=== PATIENT | female | born 1945 | race African-American/Black ===

== ENCOUNTER 2018-05-18 09:37 | Emergency (ER) | payer MEDICARE, MEDICAID ==
[~2018-05-18] VITALS: Ht 170.2 cm; Wt 102.1 kg
[2018-05-18] MEDS ORDERED: cloNIDine HCL 0.1 MG TAB PO ONE (12:45)
[2018-05-18 15:00] VITALS: BP 113/51
[2018-05-22] MEDS ORDERED: ENAL-3 PO
[2018-05-22] MEDS ORDERED: CYAN100042
[2018-05-22] MEDS ORDERED: IBUP-781 PO
[2018-05-22] MEDS ORDERED: BRIM0.159
[2018-05-22] MEDS ORDERED: FUR20T
[2018-05-22] MEDS ORDERED: DORZ2SOL18
[2018-05-22] MEDS ORDERED: CLO01T PO
[2018-05-22] MEDS ORDERED: LATA0.0015
== END 2018-05-18 16:05 | disposition home or self-care (01) ==
LOC: ER 09:37
DX: I10 Essential (primary) hypertension (principal); R51 Headache
CPT/HCPCS: 70450; 93005

== ENCOUNTER → 2018-06-21 | Outpatient (CLI) | payer MEDICARE, MEDICAID ==
[~2018-06-21] MED LIST: BRIM0.159; CLO01T PO; CYAN100042; DORZ2SOL18; ENAL-3 PO; FUR20T; IBUP-781 PO; LATA0.0015
== END | disposition home or self-care (01) ==
LOC: Rad HDHVI 09:44
PROVIDERS: ATTEND Internal Medicine Cardiovascular Disease
DX: I49.5 Sick sinus syndrome (principal); R06.1 Stridor; R06.02 Shortness of breath
CPT/HCPCS: 93306

== ENCOUNTER → 2018-07-10 | Outpatient (CLI) | payer MEDICARE, MEDICAID ==
[~2018-07-10] VITALS: Ht 172.7 cm; Wt 103.9 kg
== END | disposition home or self-care (01) ==
LOC: Rad HDHVI 13:26
PROVIDERS: ATTEND Internal Medicine Cardiovascular Disease
DX: I49.5 Sick sinus syndrome (principal); R07.89 Other chest pain; R06.02 Shortness of breath; R06.01 Orthopnea
CPT/HCPCS: 78452; 93017; 96374; A9500

== ENCOUNTER → 2019-05-02 | Outpatient (CLI) | payer MEDICARE, MEDICAID ==
[~2019-05-02] VITALS: Ht 171.4 cm; Wt 110.7 kg
[~2019-05-02] MED LIST changes: -ENAL-3 PO; +ENAL10TA2 PO
[2019-05-02 12:03] LABS: Urine Blood Negative /uL (Negative); Urine Specific Gravity 1.025 (1.001-1.035)
[2019-05-02 12:04] LABS: Basophils # (auto) 0 uL; Eosinophils # (auto) 0.1 uL; Hemoglobin 12.2 g/dL (12.2-16.2); Mean Corpuscular Hemoglobin 24.8 pg (28.0-32.0); Mean Corpuscular Volume 79.3 fL (80.0-100.0); Nucleated Red Blood Cells % 0.2 %
[2019-05-02 12:06] LABS: Basophils % (auto) 1.1 % (0.0-2.0); Eosinophils % (auto) 2.5 % (0.0-7.0); Hematocrit 38.9 % (36.0-46.0); Lymphocytes # (auto) 1.5 uL; Lymphocytes % (auto) 38.5 % (10.0-50.0); Mean Corpuscular Hgb Conc. 31.3 g/dL (32.0-36.0); Monocytes # (auto) 0.4 uL; Monocytes % (auto) 10.7 % (0.0-12.0); Neutrophils # (auto) 1.9 uL; Neutrophils % (auto) 47.2 % (37.0-80.0); Platelet Count (auto) 238 10^3/uL (140-450); Red Blood Cells 4.91 10^6/uL (4.0-5.20); Red Cell Distribution Width 16.1 % (11.8-14.3)
[2019-05-02 12:13] LABS: Albumin 3.2 g/dL (3.4-5.0); Calcium 8.8 mg/dL (8.5-10.1); Potassium 3.6 mmol/L (3.5-5.1)
[2019-05-02 12:17] LABS: BUN/Creatinine Ratio 12.5; Bilirubin, Total 0.3 mg/dL (0.2-1.0); Total Protein 6.6 g/dL (6.4-8.2)
== END | disposition home or self-care (01) ==
LOC: Rad HDHVI 08:51
PROVIDERS: ATTEND Internal Medicine Cardiovascular Disease
DX: Z00.00 Encounter for general adult medical examination without abnormal findings (principal); E03.9 Hypothyroidism, unspecified; K90.9 Intestinal malabsorption, unspecified; Z79.899 Other long term (current) drug therapy; N39.0 Urinary tract infection, site not specified; D51.9 Vitamin B12 deficiency anemia, unspecified
CPT/HCPCS: 36415; 78452; 80053; 80061; 81003; 82306; 82607; 83036; 84436; 84443; 85025; 93017; 96374; A9500

== ENCOUNTER → 2019-05-07 | Outpatient (CLI) | payer MEDICARE, MEDICAID | END | disposition home or self-care (01) | LOC: Rad HDHVI 09:06 | PROVIDERS: ATTEND Internal Medicine Cardiovascular Disease | DX: I08.8 Other rheumatic multiple valve diseases (principal) | CPT/HCPCS: 93306 ==

== ENCOUNTER → 2019-12-29 | Outpatient (CLI) | payer MEDICARE, MEDICAID ==
[~2019-12-29] MED LIST changes: +ENAL10TA13 PO; -ENAL10TA2 PO; -LATA0.0015; +LATA0.0019
== END | disposition home or self-care (01) ==
LOC: Rad HDHVI 09:45
PROVIDERS: ATTEND Internal Medicine Cardiovascular Disease
DX: I50.43 Acute on chronic combined systolic (congestive) and diastolic (congestive) heart failure (principal); R00.1 Bradycardia, unspecified
CPT/HCPCS: 93306

== ENCOUNTER → 2020-01-07 | Outpatient (CLI) | payer MEDICARE, MEDICAID ==
[2020-01-07 12:01] LABS: Basophils # (auto) 0.1 10 ^3/uL (0-0.2); Basophils % (auto) 1.1 % (0.0-2.0); Eosinophils # (auto) 0.1 10 ^3/uL (0-0.8); Eosinophils % (auto) 2.5 % (0.0-7.0); Lymphocytes # (auto) 1.8 10 ^3/uL (0.4-5.4); Monocytes # (auto) 0.5 10 ^3/uL (0-1.3); Neutrophils # (auto) 2.2 10 ^3/uL (1.6-8.6); Neutrophils % (auto) 46.7 % (37.0-80.0); Nucleated Red Blood Cells % 0.2 %
[2020-01-07 12:04] LABS: Hematocrit 39.9 % (36.0-46.0); Hemoglobin 12.6 g/dL (12.2-16.2); Lymphocytes % (auto) 38.2 % (10.0-50.0); Mean Corpuscular Hemoglobin 24.7 pg (28.0-32.0); Mean Corpuscular Hgb Conc. 31.5 g/dL (32.0-36.0); Mean Corpuscular Volume 78.3 fL (80.0-100.0); Monocytes % (auto) 11.5 % (0.0-12.0); Platelet Count (auto) 262 10^3/uL (140-450); Red Blood Cells 5.09 10^6/uL (4.0-5.20); Red Cell Distribution Width 16.4 % (11.8-14.3); White Blood Cell 4.6 10^3/uL (4.4-10.8)
[2020-01-07 12:08] LABS: Urine Blood Negative /uL (Negative); Urine Specific Gravity 1.018 (1.001-1.035)
[2020-01-07 12:15] LABS: Potassium 4.2 mmol/L (3.5-5.1)
[2020-01-07 12:23] LABS: Free T4 (Free Thyroxine) 0.81 ng/dL (0.89-1.76)
[2020-01-07 12:24] LABS: Albumin 3.3 g/dL (3.4-5.0); BUN/Creatinine Ratio 14.3; Bilirubin, Total 0.3 mg/dL (0.2-1.0); Total Protein 6.6 g/dL (6.4-8.2)
== END | disposition home or self-care (01) ==
LOC: LAB 08:48
PROVIDERS: ATTEND Internal Medicine Cardiovascular Disease
DX: D51.3 Other dietary vitamin B12 deficiency anemia (principal); I10 Essential (primary) hypertension; E11.9 Type 2 diabetes mellitus without complications; E55.9 Vitamin D deficiency, unspecified; D64.9 Anemia, unspecified; R00.2 Palpitations; R53.1 Weakness; R30.0 Dysuria
CPT/HCPCS: 36415; 80053; 80061; 81003; 82306; 82607; 83036; 84439; 84443; 85025; 87086

== ENCOUNTER → 2020-06-25 | Day surgery (SDC) | payer MEDICARE, MEDICAID ==
[2020-06-22 15:12] LABS: Basophils # (auto) 0.1 10 ^3/uL (0-0.2); Eosinophils # (auto) 0.1 10 ^3/uL (0-0.8); Lymphocytes # (auto) 2.1 10 ^3/uL (0.4-5.4); Monocytes # (auto) 0.5 10 ^3/uL (0-1.3)
[2020-06-22 15:16] LABS: Basophils % (auto) 1.5 % (0.0-2.0); Eosinophils % (auto) 2.1 % (0.0-7.0); Hematocrit 39.1 % (36.0-46.0); Hemoglobin 12.8 g/dL (12.2-16.2); Lymphocytes % (auto) 43.6 % (10.0-50.0); Mean Corpuscular Hemoglobin 25.4 pg (28.0-32.0); Mean Corpuscular Hgb Conc. 32.7 g/dL (32.0-36.0); Mean Corpuscular Volume 77.6 fL (80.0-100.0); Monocytes % (auto) 9.8 % (0.0-12.0); Nucleated Red Blood Cells % 0.3 %; Platelet Count (auto) 225 10^3/uL (140-450); Red Blood Cells 5.03 10^6/uL (4.0-5.20); White Blood Cell 4.7 10^3/uL (4.4-10.8)
[2020-06-22 15:22] LABS: Urine Bacteria MOD /hpf (None Seen); Urine Blood Negative /uL (Negative); Urine Specific Gravity 1.018 (1.001-1.035); Urine WBC 5 /hpf (0 - 5)
[2020-06-22 16:06] LABS: Albumin 3.5 g/dL (3.4-5.0); Calcium 8.8 mg/dL (8.5-10.1); Potassium 4.1 mmol/L (3.5-5.1)
[2020-06-22 16:12] LABS: BUN/Creatinine Ratio 14.8; Bilirubin, Total 0.2 mg/dL (0.2-1.0)
[2020-06-22 16:24] LABS: INR 1.04 (0.9-1.15); Partial Thromboplastin Time 26.2 sec (23.0-31.2)
[~2020-06-25] VITALS: Ht 170.2 cm; Wt 110.2 kg
[~2020-06-25] MED LIST changes: +ACET-1304 PO; +ASCO100076 PO; -BRIM0.159; +CHOL500040 PO; -CLO01T PO; -CYAN100042; +CYAN1TAB14 PO; -DORZ2SOL18; +DORZ2SOL18 EACHEYE; +FERR-20 PO; -FUR20T; +FUR20T PO; +GABA100C9 PO; +HYDROmorphone HCL 2 MG/ML VL IV PRN; -IBUP-781 PO; +LABETALOL HCL 5 MG/ML 4ML SYRINGE IV PRN; -LATA0.0019; +LATA0.0019 EACHEYE; +LEVO50TA7 PO; +NEOMYCIN-BACITRACIN-POLYM 15GM TOP OINT TOP ONE; +NIFE1TAB31 PO; +ONDANSETRON HCL 4 MG/2 ML VIAL IV PRN; +PROPOFOL 10 MG/ML 20 ML IV ONE; +ROPIVACAINE 0.5% (5MG/ML) 20ML AMPULE IJ ONE; +VITA400T4 PO; +ZINC50TA7 PO; +ceFAZolin 1GM/50ML 50 ML IV ONE
[2020-06-25] MEDS: hydrALAZINE HCL 20 MG/ML VL IV PRN ×5 (08:35→09:50)
[2020-06-25 10:20] VITALS: BP 156/80
== END | disposition home or self-care (01) ==
LOC: SUR 06:03
PROVIDERS: ATTEND Podiatrist Foot & Ankle Surgery
DX: M20.41 Other hammer toe(s) (acquired), right foot (principal); M20.42 Other hammer toe(s) (acquired), left foot; I10 Essential (primary) hypertension; E07.9 Disorder of thyroid, unspecified; R00.1 Bradycardia, unspecified; E66.9 Obesity, unspecified; Z20.822 Contact with and (suspected) exposure to COVID-19; Z98.890 Other specified postprocedural states; Z79.899 Other long term (current) drug therapy; Z95.0 Presence of cardiac pacemaker; Z85.3 Personal history of malignant neoplasm of breast; Z68.38 Body mass index [BMI] 38.0-38.9, adult
CPT/HCPCS: 28285; 36415; 80053; 81001; 85025; 85610; 85730; 88305; 88311; J0360; J0690; J1170; J2405; J2704; J2795; J3490; U0003

== ENCOUNTER 2020-07-12 13:18 | Emergency (ER) | payer MEDICARE, MEDICAID ==
[~2020-07-12] VITALS: Ht 172.7 cm; Wt 108.9 kg
[~2020-07-12 13:18] MED LIST changes: -HYDROmorphone HCL 2 MG/ML VL IV PRN; -LABETALOL HCL 5 MG/ML 4ML SYRINGE IV PRN; -NEOMYCIN-BACITRACIN-POLYM 15GM TOP OINT TOP ONE; -ONDANSETRON HCL 4 MG/2 ML VIAL IV PRN; -PROPOFOL 10 MG/ML 20 ML IV ONE; -ROPIVACAINE 0.5% (5MG/ML) 20ML AMPULE IJ ONE; -ceFAZolin 1GM/50ML 50 ML IV ONE
[2020-07-12 13:49] VITALS: BP 139/73
== END 2020-07-12 14:41 | disposition home or self-care (01) ==
LOC: ER 13:18
DX: R07.81 Pleurodynia (principal); I10 Essential (primary) hypertension; Z90.710 Acquired absence of both cervix and uterus; W18.39XA Other fall on same level, initial encounter; Y93.89 Activity, other specified; Y92.89 Other specified places as the place of occurrence of the external cause; Y99.8 Other external cause status
CPT/HCPCS: 71101

== ENCOUNTER 2020-07-29 08:20 | Emergency (ER) | payer MEDICARE, MEDICAID ==
[~2020-07-29] VITALS: Ht 170.2 cm; Wt 110.2 kg
[2020-07-29 09:45] VITALS: BP 129/62
== END 2020-07-29 10:04 | disposition home or self-care (01) ==
LOC: ER 08:20
DX: S46.911A Strain of unspecified muscle, fascia and tendon at shoulder and upper arm level, right arm, initial encounter (principal); M19.011 Primary osteoarthritis, right shoulder; I10 Essential (primary) hypertension; Z90.710 Acquired absence of both cervix and uterus; W18.09XA Striking against other object with subsequent fall, initial encounter; Y93.89 Activity, other specified; Y92.89 Other specified places as the place of occurrence of the external cause; Y99.8 Other external cause status
CPT/HCPCS: 73030; 93005

== ENCOUNTER 2021-11-01 10:13 | Emergency (ER) | payer MEDICARE, MEDICAID ==
[~2021-11-01] VITALS: Ht 170.2 cm; Wt 100.4 kg
[2021-11-01 11:15] VITALS: BP 122/52
== END 2021-11-01 13:58 | disposition home or self-care (01) ==
LOC: ER 10:13
DX: S46.911A Strain of unspecified muscle, fascia and tendon at shoulder and upper arm level, right arm, initial encounter (principal); S80.02XA Contusion of left knee, initial encounter; S50.01XA Contusion of right elbow, initial encounter; I10 Essential (primary) hypertension; W18.09XA Striking against other object with subsequent fall, initial encounter; Y93.01 Activity, walking, marching and hiking; Y92.098 Other place in other non-institutional residence as the place of occurrence of the external cause; Y99.8 Other external cause status
CPT/HCPCS: 73030; 73080; 73562

== ENCOUNTER → 2021-11-09 | Outpatient (CLI) | payer MEDICARE, MEDICAID | END | disposition home or self-care (01) | LOC: Rad HDHVI 09:44 | PROVIDERS: ATTEND Internal Medicine Cardiovascular Disease | DX: I08.8 Other rheumatic multiple valve diseases (principal); I50.43 Acute on chronic combined systolic (congestive) and diastolic (congestive) heart failure; R06.02 Shortness of breath; Z95.0 Presence of cardiac pacemaker | CPT/HCPCS: 93306 ==

== ENCOUNTER → 2021-11-16 | Outpatient (CLI) | payer MEDICARE, MEDICAID | END | disposition home or self-care (01) | LOC: Rad HDHVI 09:34 | PROVIDERS: ATTEND Internal Medicine Cardiovascular Disease | DX: I51.7 Cardiomegaly (principal); I10 Essential (primary) hypertension | CPT/HCPCS: 93880 ==

== ENCOUNTER → 2021-11-21 | Outpatient (CLI) | payer MEDICARE, MEDICAID ==
[~2021-11-21] VITALS: Ht 171.4 cm; Wt 101.2 kg
== END | disposition home or self-care (01) ==
LOC: Rad HDHVI 09:21
PROVIDERS: ATTEND Internal Medicine Cardiovascular Disease
DX: I10 Essential (primary) hypertension (principal); Z82.49 Family history of ischemic heart disease and other diseases of the circulatory system; Z95.0 Presence of cardiac pacemaker; Z79.899 Other long term (current) drug therapy
CPT/HCPCS: 78452; 93017; 96374; A9500

== ENCOUNTER 2022-01-16 11:38 | Emergency (ER) | payer MEDICARE, MEDICAID ==
[~2022-01-16] VITALS: Ht 170.2 cm; Wt 106.0 kg
[2022-01-16 15:22] VITALS: BP 100/65
[2022-01-16] MEDS ORDERED: ACETAMINOPHEN 500 MG TAB PO ONE (15:30)
== END 2022-01-16 19:12 | disposition home or self-care (01) ==
LOC: ER 11:38
DX: S93.601A Unspecified sprain of right foot, initial encounter (principal); S83.91XA Sprain of unspecified site of right knee, initial encounter; Z79.899 Other long term (current) drug therapy; Z90.710 Acquired absence of both cervix and uterus; W01.0XXA Fall on same level from slipping, tripping and stumbling without subsequent striking against object, initial encounter; Y93.89 Activity, other specified; Y92.89 Other specified places as the place of occurrence of the external cause; Y99.8 Other external cause status
CPT/HCPCS: 72100; 73130; 73501; 73562; 73630

== ENCOUNTER → 2022-05-19 | Outpatient (CLI) | payer MEDICARE, MEDICAID | END | disposition home or self-care (01) | LOC: Rad HDHVI 10:00 | PROVIDERS: ATTEND Internal Medicine Cardiovascular Disease | DX: M51.36 Other intervertebral disc degeneration, lumbar region (principal); M48.061 Spinal stenosis, lumbar region without neurogenic claudication; M89.38 Hypertrophy of bone, other site; M54.50 Low back pain, unspecified | CPT/HCPCS: 72131 ==

== ENCOUNTER → 2022-07-14 | Outpatient (CLI) | payer MEDICARE, MEDICAID | END | disposition home or self-care (01) | LOC: Rad HDHVI 13:31 | PROVIDERS: ATTEND Internal Medicine Cardiovascular Disease | DX: R05.9 Cough, unspecified (principal); M51.34 Other intervertebral disc degeneration, thoracic region; M48.04 Spinal stenosis, thoracic region | CPT/HCPCS: 71046 ==

== ENCOUNTER 2022-12-04 10:17 | Emergency (ER) | payer MEDICARE, MEDICAID ==
[~2022-12-04] VITALS: Ht 170.2 cm; Wt 98.4 kg
[~2022-12-04 10:17] MED LIST changes: -ENAL10TA13 PO; +ENAL1TAB47 PO; -FERR-20 PO; +FERR325T24 PO; +GABA-1308 PO; -GABA100C9 PO; -LATA0.0019 EACHEYE; +LATA0.008 EACHEYE
[2022-12-04 11:17] LABS: Basophils # (auto) 0.1 10 ^3/uL (0-0.2); Basophils % (auto) 0.7 % (0.0-2.0); Eosinophils # (auto) 0.1 10 ^3/uL (0-0.8); Hemoglobin 11.6 g/dL (12.2-16.2)
[2022-12-04 11:20] LABS: Eosinophils % (auto) 0.5 % (0.0-7.0); Hematocrit 35.8 % (36.0-46.0); Lymphocytes # (auto) 1.4 10 ^3/uL (0.4-5.4); Mean Corpuscular Hemoglobin 25.4 pg (28.0-32.0); Mean Corpuscular Hgb Conc. 32.4 g/dL (32.0-36.0); Mean Corpuscular Volume 78.4 fL (80.0-100.0); Monocytes # (auto) 0.9 10 ^3/uL (0-1.3); Monocytes % (auto) 9.2 % (0.0-12.0); Neutrophils # (auto) 7.1 10 ^3/uL (1.6-8.6); Neutrophils % (auto) 74.6 % (37.0-80.0); Red Blood Cells 4.56 10^6/uL (4.0-5.20); White Blood Cell 9.6 10^3/uL (4.4-10.8)
[2022-12-04 11:25] LABS: Alanine Aminotransferase 15 U/L (7-40); Albumin 4.1 g/dL (3.2-4.8); Alkaline Phosphatase 89 U/L (46-116); Aspartate Aminotransferase 11 U/L (13-40); BUN/Creatinine Ratio 15.2 (10.0-20.0); Blood Urea Nitrogen 15 mg/dL (9-23); Calcium 9.1 mg/dL (8.5-10.1); Chloride 107 mmol/L (98-107); Glucose 133 mg/dL (74-106); Magnesium 1.6 mg/dL (1.6-2.6); Potassium 4.2 mmol/L (3.5-5.1); Sodium 141 mmol/L (136-145)
[2022-12-04 11:26] LABS: Bilirubin, Total 0.5 mg/dL (0.2-1.0); Total Protein 6.4 g/dL (5.7-8.2)
[2022-12-04 12:09] LABS: Rapid Influenza A Negative (Negative); Rapid Influenza B Negative (Negative)
[2022-12-04 12:10] LABS: COVID19 ANTIGEN SOFIA FIA NEGATIVE (NEGATIVE)
[2022-12-04 13:03] LABS: Urine Bacteria NONE SEEN /hpf (None Seen); Urine Blood Negative /uL (Negative); Urine Clarity Clear (Clear); Urine Color Colorless (Yellow); Urine Hyaline Cast FEW /lpf (0 - 2); Urine Protein, UAD Negative (Negative); Urine Urobilinogen Normal (Negative); Urine WBC 1 /hpf (0 - 5)
[2022-12-04] MEDS ORDERED: IOHEXOL 350 MG/ML 100ML IJ ONE (14:16)
[2022-12-04] MEDS ORDERED: METH4PAK PO (16:11)
[2022-12-04] MEDS ORDERED: AZIT1POW PO ×3 (16:11→19:36)
[2022-12-04 16:21] VITALS: BP 139/67; PULSE 100; RESP 15; TEMP 99; O2SAT 98
== END 2022-12-04 16:23 | disposition home or self-care (01) ==
LOC: ER 10:17
DX: J20.9 Acute bronchitis, unspecified (principal); R79.1 Abnormal coagulation profile; I10 Essential (primary) hypertension; Z90.710 Acquired absence of both cervix and uterus; Z20.822 Contact with and (suspected) exposure to COVID-19
CPT/HCPCS: 36415; 71046; 71275; 80053; 81001; 83605; 83735; 83880; 84484; 85025; 85379; 87040; 87426; 87804; 93005; 99285; Q9967

== ENCOUNTER 2022-12-29 10:06 | Emergency (ER) | payer MEDICARE, MEDICAID ==
[~2022-12-29] VITALS: Ht 170.2 cm; Wt 10.0 kg
[~2022-12-29 10:06] MED LIST changes: +AZIT1POW PO; +METH4PAK PO
[2022-12-29 11:22] VITALS: BP 112/70; PULSE 69; RESP 18; TEMP 98.6; O2SAT 97
[2022-12-29 11:58] LABS: Basophils # (auto) 0.1 10 ^3/uL (0-0.2); Eosinophils # (auto) 0.1 10 ^3/uL (0-0.8); Hemoglobin 11.5 g/dL (12.2-16.2); Lymphocytes # (auto) 1.7 10 ^3/uL (0.4-5.4); Neutrophils # (auto) 2.3 10 ^3/uL (1.6-8.6); Nucleated Red Blood Cells % 0.1 %; Red Cell Distribution Width 17.6 % (11.8-14.3); White Blood Cell 4.6 10^3/uL (4.4-10.8)
[2022-12-29 11:59] LABS: Basophils % (auto) 1.3 % (0.0-2.0); Hematocrit 36.2 % (36.0-46.0); Lymphocytes % (auto) 37.9 % (10.0-50.0); Mean Corpuscular Hgb Conc. 31.7 g/dL (32.0-36.0); Mean Corpuscular Volume 79.1 fL (80.0-100.0); Monocytes # (auto) 0.4 10 ^3/uL (0-1.3); Monocytes % (auto) 9.4 % (0.0-12.0); Neutrophils % (auto) 49.4 % (37.0-80.0); Red Blood Cells 4.58 10^6/uL (4.0-5.20)
[2022-12-29 12:13] LABS: INR 1.09 (0.9-1.15); Prothrombin Time 11.4 sec (9.3-11.8)
[2022-12-29 12:17] LABS: Alanine Aminotransferase 15 U/L (7-40); Albumin 4.2 g/dL (3.2-4.8); Alkaline Phosphatase 94 U/L (46-116); Anion Gap 7 (5-15); Aspartate Aminotransferase 12 U/L (13-40); BUN/Creatinine Ratio 11.3 (10.0-20.0); Bilirubin, Total 0.4 mg/dL (0.2-1.0); Blood Urea Nitrogen 13 mg/dL (9-23); Calcium 9.2 mg/dL (8.7-10.4); Carbon Dioxide 29 mmol/L (20-30); Chloride 107 mmol/L (98-107); Glucose 96 mg/dL (74-106); Potassium 4.1 mmol/L (3.5-5.1); Sodium 143 mmol/L (136-145); Total Protein 6.6 g/dL (5.7-8.2); Uric Acid 6.2 mg/dL (3.1-7.8)
[2022-12-29 13:25] LABS: Urine Bacteria NONE SEEN /hpf (None Seen); Urine Blood Negative /uL (Negative); Urine Clarity Clear (Clear); Urine Color Yellow (Yellow); Urine Hyaline Cast MOD /lpf (0 - 2); Urine Protein, UAD Negative (Negative); Urine Specific Gravity 1.016 (1.001-1.035); Urine Urobilinogen Normal (Negative); Urine WBC 2 /hpf (0 - 5)
== END 2022-12-29 13:59 | disposition home or self-care (01) ==
LOC: ER 10:06
DX: R60.9 Edema, unspecified (principal); I10 Essential (primary) hypertension; Z79.899 Other long term (current) drug therapy; Z90.710 Acquired absence of both cervix and uterus; Z98.890 Other specified postprocedural states
CPT/HCPCS: 36415; 80053; 81001; 83880; 84550; 85025; 85610; 93971

== ENCOUNTER → 2023-01-30 | Outpatient (CLI) | payer MEDICARE, MEDICAID | END | disposition home or self-care (01) | LOC: Rad HDHVI 08:57 | PROVIDERS: ATTEND Internal Medicine Cardiovascular Disease | DX: I08.1 Rheumatic disorders of both mitral and tricuspid valves (principal); I10 Essential (primary) hypertension | CPT/HCPCS: 93306 ==

== ENCOUNTER → 2023-02-02 | Outpatient (CLI) | payer MEDICARE, MEDICAID ==
[~2023-02-02] VITALS: Ht 171.4 cm; Wt 96.6 kg
[~2023-02-02] MED LIST changes: +ADENOSINE 81 MG in GIVE UN-DILUTED 0 ML IV ONE; +ADENOSINE 90 MG/30 ML INJ IV ONE
== END | disposition home or self-care (01) ==
LOC: Rad HDHVI 09:57
PROVIDERS: ATTEND Internal Medicine Cardiovascular Disease
DX: R06.02 Shortness of breath (principal); I10 Essential (primary) hypertension; I49.5 Sick sinus syndrome; R42 Dizziness and giddiness; E78.00 Pure hypercholesterolemia, unspecified; Z95.0 Presence of cardiac pacemaker
CPT/HCPCS: 78452; 93005; 96374; 96375; A9500; J0153

== ENCOUNTER 2023-03-01 06:02 | Inpatient (IN) | payer MEDICARE, MEDICAID ==
[2023-02-26 10:51] LABS: Eosinophils # (auto) 0.1 10 ^3/uL (0-0.8); Hemoglobin 10.6 g/dL (12.2-16.2); Mean Corpuscular Hgb Conc. 31.7 g/dL (32.0-36.0); Neutrophils # (auto) 2.5 10 ^3/uL (1.6-8.6); Red Blood Cells 4.18 10^6/uL (4.0-5.20)
[2023-02-26 10:55] LABS: Basophils # (auto) 0.1 10 ^3/uL (0-0.2); Basophils % (auto) 1.1 % (0.0-2.0); Eosinophils % (auto) 2.1 % (0.0-7.0); Hematocrit 33.6 % (36.0-46.0); Lymphocytes # (auto) 1.6 10 ^3/uL (0.4-5.4); Lymphocytes % (auto) 33.5 % (10.0-50.0); Mean Corpuscular Hemoglobin 25.5 pg (28.0-32.0); Mean Corpuscular Volume 80.4 fL (80.0-100.0); Monocytes # (auto) 0.5 10 ^3/uL (0-1.3); Monocytes % (auto) 11.3 % (0.0-12.0); Nucleated Red Blood Cells % 0.1 %; Red Cell Distribution Width 16.1 % (11.8-14.3); White Blood Cell 4.8 10^3/uL (4.4-10.8)
[2023-02-26 11:10] LABS: Urine Bacteria NONE SEEN /hpf (None Seen); Urine Blood Negative /uL (Negative); Urine Clarity Clear (Clear); Urine Color Yellow (Yellow); Urine Hyaline Cast MOD /lpf (0 - 2); Urine Mucus FEW (None Seen); Urine Protein, UAD TRACE (Negative); Urine Specific Gravity 1.026 (1.001-1.035); Urine WBC 2 /hpf (0 - 5)
[2023-02-26 11:14] LABS: INR 1.11 (0.9-1.15); Partial Thromboplastin Time 26.3 SEC (24.5-34.5); Prothrombin Time 11.6 sec (9.3-11.8)
[2023-02-26 11:25] LABS: Alanine Aminotransferase 14 U/L (7-40); Alkaline Phosphatase 76 U/L (46-116); Anion Gap 6 (5-15); Blood Urea Nitrogen 18 mg/dL (9-23); Calcium 9.1 mg/dL (8.5-10.1); Carbon Dioxide 28 mmol/L (20-30); Chloride 109 mmol/L (98-107); Glucose 76 mg/dL (74-106); Potassium 4.5 mmol/L (3.5-5.1); Sodium 143 mmol/L (136-145)
[2023-02-26 11:27] LABS: Albumin 3.8 g/dL (3.2-4.8); Aspartate Aminotransferase 15 U/L (13-40); Bilirubin, Total 0.3 mg/dL (0.2-1.0); Total Protein 5.9 g/dL (5.7-8.2)
[~2023-03-01] VITALS: Ht 170.2 cm; Wt 101.9 kg
[~2023-03-01 06:02] MED LIST changes: -ADENOSINE 81 MG in GIVE UN-DILUTED 0 ML IV ONE; -ADENOSINE 90 MG/30 ML INJ IV ONE; -ASCO100076 PO; +ASCO500C49 PO; -AZIT1POW PO; +BACL20TA PO; -FERR325T24 PO; +FERR65TA PO; -GABA-1308 PO; +LORA-622 PO; +MAGN400T40 OR; -METH4PAK PO; +NIFE1TAB30 PO; -NIFE1TAB31 PO
[2023-03-01] MEDS ORDERED: ceFAZolin 2 GM/D5W100ml 100 ML IV ONE (06:18)
[2023-03-01] MEDS ORDERED: TRANEXAMIC ACID 20 ML ONE (06:21)
[2023-03-01] MEDS ORDERED: LIDOCAINE W/ EPINEPHRINE 1% 20ML VIAL ONE (06:21)
[2023-03-01] MEDS ORDERED: ACETAMINOPHEN IV 100 ML IV ONE (06:37)
[2023-03-01] MEDS ORDERED: ACETAMINOPHEN IV 1000 MG/100ML (10MG/ML) IV ONE (06:45)
[2023-03-01] MEDS ORDERED: oxyCODONE ER 20 MG TAB PO ONE (06:45)
[2023-03-01] MEDS ORDERED: GABAPENTIN 300 MG CAP PO ONE (06:45)
[2023-03-01] MEDS ORDERED: MAGNESIUM SULFATE 1GM/100ML 200 ML IV ONE (06:48)
[2023-03-01] MEDS ORDERED: LIDOCAINE 4MG/ML IV SOLN 500 ML IV ONE (06:48)
[2023-03-01] MEDS ORDERED: LIDOCAINE 2% JELLY 11ml (GLYDO) ONE (06:48)
[2023-03-01] MEDS ORDERED: PROPOFOL 10 MG/ML 20 ML IV ONE ×4 (07:00→10:43)
[2023-03-01] MEDS ORDERED: GLYCOPYRROLATE 0.2 MG/ML 1ML VIAL ONE (07:00)
[2023-03-01] MEDS ORDERED: ROCURONIUM 10MG/ML 10ML VIAL IV ONE (07:00)
[2023-03-01] MEDS ORDERED: ONDANSETRON HCL 4 MG/2 ML VIAL ONE (07:01)
[2023-03-01] MEDS ORDERED: LIDOCAINE 2% (LOCAL ANESTH.) PF 5ml SDV ONE (07:01)
[2023-03-01] MEDS ORDERED: DexAMETHasone SOD PHOS 10MG/1ML VIAL INJ ONE (07:01)
[2023-03-01] MEDS ORDERED: GABAPENTIN 300 MG CAP ONE (07:09)
[2023-03-01] MEDS ORDERED: MINERAL OIL TOPICAL 10ml TOP ONE (08:56)
[2023-03-01] MEDS ORDERED: ESMOLOL HCL 10 ML IV ONE (09:03)
[2023-03-01] MEDS ORDERED: fentaNYL CITRATE 100 MCG/2 ML VL ONE (10:30)
[2023-03-01] MEDS ORDERED: ONDANSETRON HCL 4 MG/2 ML VIAL IV PRN ×2 (11:00→12:15)
[2023-03-01] MEDS ORDERED: MORPHINE SULFATE INJ 2 MG/ml SYRG IV PRN (11:00)
[2023-03-01] MEDS ORDERED: NITROGLYCERIN 0.4 MG SL TAB SL PRN (11:00)
[2023-03-01] MEDS ORDERED: ACETAMINOPHEN 325 MG TAB PO PRN (11:00)
[2023-03-01] MEDS ORDERED: ceFAZolin 1GM/50ML 50 ML IV SCH (11:00)
[2023-03-01 12:00] VITALS: O2SAT 100
[2023-03-01] MEDS ORDERED: ePHEDrine SULFATE 50 MG/ML AMP IV PRN (12:15)
[2023-03-01] MEDS ORDERED: HYDROmorphone HCL 2 MG/ML VL/or syr IV PRN (12:15)
[2023-03-01] MEDS ORDERED: oxyCODONE HCL 5MG TAB PO PRN (12:15)
[2023-03-01] MEDS ORDERED: FLUMAZENIL 0.1 MG/ML INJ 10ML MDV IV PRN (12:15)
[2023-03-01] MEDS ORDERED: fentaNYL CITRATE 100 MCG/2 ML VL IV PRN (12:15)
[2023-03-01] MEDS ORDERED: LABETALOL HCL 5 MG/ML 4ML SYRINGE IV PRN (12:15)
[2023-03-01] MEDS ORDERED: NALOXONE HCL 0.4 MG/ML VIAL IV PRN (12:15)
[2023-03-01] MEDS: hydrALAZINE HCL 20 MG/ML VL IV PRN ×2 (13:24→13:36)
[2023-03-01] MEDS: CYCLOBENZAPRINE HCL 10 MG TAB PO SCH ×2 (14:00→21:50)
[2023-03-01] MEDS ORDERED: hydrALAZINE HCL 20 MG/ML VL IV PRN (14:30)
[2023-03-01 15:23] VITALS: RESP 18; O2SAT 97
[2023-03-01 15:32] VITALS: BP 124/68; PULSE 67; RESP 17; TEMP 98.4; O2SAT 98
[2023-03-01] MEDS: ceFAZolin 1GM/50ML 50 ML IV SCH (16:29)
[2023-03-01 16:45] VITALS: BP 119/62; PULSE 62; RESP 17; TEMP 97.3; O2SAT 96
[2023-03-01 20:00] VITALS: PULSE 64; PULSE 67; RESP 16; O2SAT 97
[2023-03-01] MEDS: D5W/SOD CHLO 0.9% 1,000 ML IV SCH (21:47)
[2023-03-01] MEDS: DOCUSATE SOD 100 MG CAP PO SCH (21:50)
[2023-03-01 22:00] VITALS: BP 111/59; PULSE 64; RESP 16; TEMP 97.7; O2SAT 97
[2023-03-02] VITALS (7 sets, daily range): BP systolic 106–114; BP diastolic 54–59; PULSE 70–86; RESP 14–19; TEMP 97.7–100; O2SAT 94–97
[2023-03-02] MEDS: ceFAZolin 1GM/50ML 50 ML IV SCH (00:54)
[2023-03-02] MEDS: CYCLOBENZAPRINE HCL 10 MG TAB PO SCH ×3 (05:15→21:23)
[2023-03-02] MEDS: LEVOTHYROXINE SODIUM 50 MCG TAB PO SCH (06:07)
[2023-03-02 06:17] LABS: Basophils # (auto) 0 10 ^3/uL (0-0.2); Basophils % (auto) 0.3 % (0.0-2.0); Eosinophils # (auto) 0 10 ^3/uL (0-0.8); Hemoglobin 10.1 g/dL (12.2-16.2); Mean Corpuscular Hgb Conc. 31.6 g/dL (32.0-36.0); Mean Corpuscular Volume 79.9 fL (80.0-100.0); Monocytes # (auto) 1.1 10 ^3/uL (0-1.3)
[2023-03-02 06:21] LABS: Eosinophils % (auto) 0.1 % (0.0-7.0); Lymphocytes # (auto) 1.9 10 ^3/uL (0.4-5.4); Lymphocytes % (auto) 17.5 % (10.0-50.0); Mean Corpuscular Hemoglobin 25.2 pg (28.0-32.0); Monocytes % (auto) 10.3 % (0.0-12.0); Neutrophils # (auto) 7.6 10 ^3/uL (1.6-8.6); Neutrophils % (auto) 71.8 % (37.0-80.0); Red Blood Cells 4.01 10^6/uL (4.0-5.20); White Blood Cell 10.6 10^3/uL (4.4-10.8)
[2023-03-02 06:51] LABS: Anion Gap 6 (5-15); Carbon Dioxide 27 mmol/L (20-30); Chloride 108 mmol/L (98-107); Sodium 141 mmol/L (136-145)
[2023-03-02 06:56] LABS: Glucose 110 mg/dL (74-106)
[2023-03-02 06:57] LABS: BUN/Creatinine Ratio 12.1 (10.0-20.0); Blood Urea Nitrogen 13 mg/dL (9-23)
[2023-03-02] MEDS: D5W/SOD CHLO 0.9% 1,000 ML IV SCH ×2 (07:00→16:51)
[2023-03-02] MEDS: DOCUSATE SOD 100 MG CAP PO SCH ×2 (10:22→21:23)
[2023-03-02] MEDS: LISINOPRIL 10 MG TAB PO SCH (10:22)
[2023-03-02] MEDS: MORPHINE SULFATE INJ 2 MG/ml SYRG IV PRN (16:59)
[2023-03-03] VITALS (7 sets, daily range): BP systolic 104–135; BP diastolic 49–76; PULSE 62–98; RESP 17–20; TEMP 97.9–100.1; O2SAT 95–99
[2023-03-03] MEDS: D5W/SOD CHLO 0.9% 1,000 ML IV SCH ×3 (03:00→23:35)
[2023-03-03] MEDS: LEVOTHYROXINE SODIUM 50 MCG TAB PO SCH (06:02)
[2023-03-03] MEDS: CYCLOBENZAPRINE HCL 10 MG TAB PO SCH ×3 (06:04→21:25)
[2023-03-03] MEDS: LISINOPRIL 10 MG TAB PO SCH (09:13)
[2023-03-03] MEDS: DOCUSATE SOD 100 MG CAP PO SCH ×2 (09:13→21:25)
[2023-03-04] VITALS (7 sets, daily range): BP systolic 106–131; BP diastolic 46–63; PULSE 83–100; RESP 16–19; TEMP 98.4–99.9; O2SAT 92–98
[2023-03-04] MEDS: LEVOTHYROXINE SODIUM 50 MCG TAB PO SCH (06:28)
[2023-03-04] MEDS: CYCLOBENZAPRINE HCL 10 MG TAB PO SCH ×3 (06:28→21:06)
[2023-03-04] MEDS: D5W/SOD CHLO 0.9% 1,000 ML IV SCH ×2 (09:00→14:22)
[2023-03-04] MEDS: HYDROcodone-ACET 10/325MG TAB PO PRN (09:26)
[2023-03-04] MEDS: DOCUSATE SOD 100 MG CAP PO SCH ×2 (09:26→21:05)
[2023-03-04] MEDS: LISINOPRIL 10 MG TAB PO SCH (09:27)
[2023-03-04 13:59] LABS: COVID19 ANTIGEN SOFIA FIA NEGATIVE (NEGATIVE)
[2023-03-04] MEDS: MORPHINE SULFATE INJ 2 MG/ml SYRG IV PRN ×2 (16:25→21:07)
[2023-03-05] MEDS: CYCLOBENZAPRINE HCL 10 MG TAB PO SCH ×2 (05:36→13:58)
[2023-03-05] MEDS: D5W/SOD CHLO 0.9% 1,000 ML IV SCH ×2 (05:36→14:35)
[2023-03-05] MEDS: LEVOTHYROXINE SODIUM 50 MCG TAB PO SCH (05:50)
[2023-03-05 06:10] VITALS: TEMP 98.8
[2023-03-05 08:00] VITALS: BP 106/47; PULSE 89; RESP 17; TEMP 99; O2SAT 95
[2023-03-05 09:00] VITALS: BP 106/47; PULSE 89; RESP 17; TEMP 99; O2SAT 95
[2023-03-05] MEDS: LISINOPRIL 10 MG TAB PO SCH (09:10)
[2023-03-05] MEDS: DOCUSATE SOD 100 MG CAP PO SCH (09:10)
[2023-03-05] MEDS: MORPHINE SULFATE INJ 2 MG/ml SYRG IV PRN (09:11)
[2023-03-05 13:00] VITALS: BP 109/49; PULSE 83; RESP 17; TEMP 99.5; O2SAT 97
[2023-03-05 14:52] LABS: Basophils # (auto) 0 10 ^3/uL (0-0.2); Eosinophils # (auto) 0.1 10 ^3/uL (0-0.8); Eosinophils % (auto) 0.5 % (0.0-7.0); Mean Corpuscular Hemoglobin 25.7 pg (28.0-32.0); Nucleated Red Blood Cells % 0.1 %
[2023-03-05 14:54] LABS: Basophils % (auto) 0.4 % (0.0-2.0); Hematocrit 26.6 % (36.0-46.0); Hemoglobin 8.4 g/dL (12.2-16.2); Lymphocytes % (auto) 19.4 % (10.0-50.0); Mean Corpuscular Hgb Conc. 31.7 g/dL (32.0-36.0); Monocytes # (auto) 1.4 10 ^3/uL (0-1.3); Monocytes % (auto) 13.1 % (0.0-12.0); Neutrophils % (auto) 66.6 % (37.0-80.0); Red Blood Cells 3.28 10^6/uL (4.0-5.20); Red Cell Distribution Width 15.8 % (11.8-14.3); White Blood Cell 10.5 10^3/uL (4.4-10.8)
[2023-03-05 15:09] LABS: Alanine Aminotransferase 20 U/L (7-40); Alkaline Phosphatase 83 U/L (46-116); Anion Gap 4 (5-15); Aspartate Aminotransferase 26 U/L (13-40); BUN/Creatinine Ratio 13.2 (10.0-20.0); Blood Urea Nitrogen 12 mg/dL (9-23); Calcium 7.8 mg/dL (8.7-10.4); Carbon Dioxide 25 mmol/L (20-30); Chloride 108 mmol/L (98-107); Glucose 112 mg/dL (74-106); Potassium 4.4 mmol/L (3.5-5.1); Sodium 137 mmol/L (136-145)
[2023-03-05 15:10] LABS: Bilirubin, Total 0.5 mg/dL (0.2-1.0); Total Protein 4.9 g/dL (5.7-8.2)
[2023-03-05 17:00] VITALS: BP 99/46; PULSE 84; RESP 17; TEMP 98; O2SAT 97
[2023-03-05] MEDS: HYDROcodone-ACET 10/325MG TAB PO PRN (17:21)
== END 2023-03-05 19:02 | DRG 460 ==
LOC: SUR 06:02 → TELE 10:58 → TELE-WESTW 14:54
PROVIDERS: ADMIT Orthopaedic Surgery; ATTEND Family Medicine
PROC: 00NY0ZZ Release Lumbar Spinal Cord, Open Approach (ICD-10-PCS; 2023-03-01)
PROC: 01NB0ZZ Release Lumbar Nerve, Open Approach (ICD-10-PCS; 2023-03-01)
PROC: 4A11X4G Monitoring of Peripheral Nervous Electrical Activity, Intraoperative, External Approach (ICD-10-PCS; 2023-03-01)
PROC: 0SG1071 Fusion of 2 or more Lumbar Vertebral Joints with Autologous Tissue Substitute, Posterior Approach, Posterior Column, Open Approach (ICD-10-PCS; principal; 2023-03-01 08:08)
DX: M48.061 Spinal stenosis, lumbar region without neurogenic claudication (principal); I50.32 Chronic diastolic (congestive) heart failure; N17.9 Acute kidney failure, unspecified; D64.9 Anemia, unspecified; E03.9 Hypothyroidism, unspecified; Z20.822 Contact with and (suspected) exposure to COVID-19; E66.9 Obesity, unspecified; M54.16 Radiculopathy, lumbar region; I11.0 Hypertensive heart disease with heart failure; Z85.3 Personal history of malignant neoplasm of breast; Z68.35 Body mass index [BMI] 35.0-35.9, adult; Z90.11 Acquired absence of right breast and nipple; Z95.0 Presence of cardiac pacemaker; Z88.8 Allergy status to other drugs, medicaments and biological substances
CPT/HCPCS: 36415; 71045; 72100; 76000; 80048; 80053; 81001; 84443; 85025; 85610; 85730; 86850; 86900; 86901; 87426; 97110; 97116; 97163; 97530; G0378; J0131; J0690; J1100; J2001; J2405; J2704; J7042

== ENCOUNTER → 2023-04-19 | Outpatient (CLI) | payer MEDICARE, MEDICAID ==
[2023-04-19 11:44] LABS: Basophils # (auto) 0.1 10 ^3/uL (0-0.2); Eosinophils # (auto) 0.1 10 ^3/uL (0-0.8); Hemoglobin 10.8 g/dL (12.2-16.2); Lymphocytes # (auto) 2.3 10 ^3/uL (0.4-5.4); Neutrophils # (auto) 2.1 10 ^3/uL (1.6-8.6); Nucleated Red Blood Cells % 0.1 %; Red Cell Distribution Width 18.5 % (11.8-14.3)
[2023-04-19 11:47] LABS: Basophils % (auto) 2.5 % (0.0-2.0); Eosinophils % (auto) 1.8 % (0.0-7.0); Hematocrit 34.8 % (36.0-46.0); Lymphocytes % (auto) 44.5 % (10.0-50.0); Mean Corpuscular Hemoglobin 23.5 pg (28.0-32.0); Monocytes # (auto) 0.5 10 ^3/uL (0-1.3); Monocytes % (auto) 10.5 % (0.0-12.0); Neutrophils % (auto) 40.7 % (37.0-80.0); Red Blood Cells 4.58 10^6/uL (4.0-5.20); White Blood Cell 5.1 10^3/uL (4.4-10.8)
[2023-04-19 11:58] LABS: Urine Bacteria NONE SEEN /hpf (None Seen); Urine Blood Negative /uL (Negative); Urine Clarity Clear (Clear); Urine Color Yellow (Yellow); Urine Mucus FEW (None Seen); Urine Protein, UAD Negative (Negative); Urine Specific Gravity 1.017 (1.001-1.035); Urine WBC <1 /hpf (0 - 5)
[2023-04-19 12:48] LABS: Alanine Aminotransferase 17 U/L (7-40); Alkaline Phosphatase 94 U/L (46-116); Anion Gap 4 (5-15); Aspartate Aminotransferase 16 U/L (13-40); BUN/Creatinine Ratio 10.1 (10.0-20.0); Bilirubin, Direct 0.2 mg/dL (<0.3); Bilirubin, Total 0.4 mg/dL (0.2-1.0); Blood Urea Nitrogen 10 mg/dL (9-23); Calcium 9.9 mg/dL (8.5-10.1); Carbon Dioxide 31 mmol/L (20-30); Chloride 107 mmol/L (98-107); Cholesterol 165 mg/dL (< 200); Glucose 99 mg/dL (74-106); HDL Cholesterol 81 mg/dL (40-59); LDL Cholesterol 60 mg/dL (< 100); Potassium 4.3 mmol/L (3.5-5.1); Sodium 142 mmol/L (136-145); Total Protein 6.5 g/dL (5.7-8.2); Triglycerides 91 mg/dL (< 150)
== END | disposition home or self-care (01) ==
LOC: LAB 11:16
PROVIDERS: ATTEND Internal Medicine Cardiovascular Disease
DX: I10 Essential (primary) hypertension (principal); E11.9 Type 2 diabetes mellitus without complications; R53.1 Weakness; R30.0 Dysuria; R00.2 Palpitations; D51.3 Other dietary vitamin B12 deficiency anemia; E55.9 Vitamin D deficiency, unspecified
CPT/HCPCS: 36415; 80053; 80061; 80076; 81001; 82306; 83036; 84443; 85025

== ENCOUNTER 2023-07-16 11:53 | Emergency (ER) | payer MEDICARE, MEDICAID ==
[~2023-07-16] VITALS: Ht 170.2 cm; Wt 91.4 kg
[2023-07-16] MEDS ORDERED: IBUPROFEN 600 MG TAB PO ONE (13:00)
[2023-07-16] MEDS: HYDROcodone-ACET 10/325MG TAB PO ONE (18:28)
[2023-07-16] MEDS ORDERED: HYDR-4902 PO (20:50)
[2023-07-16 21:33] VITALS: BP 154/83; PULSE 67; RESP 20; TEMP 98.2; O2SAT 98
== END 2023-07-16 21:38 | disposition home or self-care (01) ==
LOC: ER 11:53
DX: G89.29 Other chronic pain (principal); M54.42 Lumbago with sciatica, left side; I11.0 Hypertensive heart disease with heart failure; I50.30 Unspecified diastolic (congestive) heart failure; E07.9 Disorder of thyroid, unspecified; M47.816 Spondylosis without myelopathy or radiculopathy, lumbar region; M48.061 Spinal stenosis, lumbar region without neurogenic claudication; E66.01 Morbid (severe) obesity due to excess calories; Z68.31 Body mass index [BMI] 31.0-31.9, adult; Z90.710 Acquired absence of both cervix and uterus; Z95.0 Presence of cardiac pacemaker; Z90.10 Acquired absence of unspecified breast and nipple; Z79.899 Other long term (current) drug therapy; Z85.3 Personal history of malignant neoplasm of breast; Z86.2 Personal history of diseases of the blood and blood-forming organs and certain disorders involving the immune mechanism; Z88.6 Allergy status to analgesic agent
CPT/HCPCS: 72100

== ENCOUNTER → 2023-09-05 | Outpatient (CLI) | payer MEDICARE, MEDICAID ==
[~2023-09-05] MED LIST changes: +HYDR-4902 PO
== END | disposition home or self-care (01) ==
LOC: Rad HDHVI 11:43
PROVIDERS: ATTEND Internal Medicine Cardiovascular Disease
DX: D17.9 Benign lipomatous neoplasm, unspecified (principal); M16.11 Unilateral primary osteoarthritis, right hip; M62.58 Muscle wasting and atrophy, not elsewhere classified, other site; I42.4 Endocardial fibroelastosis
CPT/HCPCS: 73700

== ENCOUNTER → 2024-05-02 | Outpatient (CLI) | payer MEDICARE, MEDICAID ==
[~2024-05-02] MED LIST changes: -FUR20T PO; +FURO20TA4 PO
[2024-05-02 08:10] LABS: Urine Blood Negative /uL (Negative); Urine Clarity Clear (Clear); Urine Color Light-Yellow (Yellow); Urine Protein, UAD Negative (Negative); Urine Urobilinogen 2 mg/dL (Negative); Urine pH 6.5 (5.0-9.0)
[2024-05-02 08:19] LABS: Basophils # (auto) 0.1 10 ^3/uL (0-0.2); Eosinophils # (auto) 0.1 10 ^3/uL (0-0.8); Hemoglobin 11.1 g/dL (12.2-16.2); Lymphocytes # (auto) 1.4 10 ^3/uL (0.4-5.4); Lymphocytes % (auto) 36.2 % (10.0-50.0); Neutrophils # (auto) 1.9 10 ^3/uL (1.6-8.6); Nucleated Red Blood Cells % 0.1 %; White Blood Cell 3.9 10^3/uL (4.4-10.8)
[2024-05-02 08:21] LABS: Basophils % (auto) 1.7 % (0.0-2.0); Eosinophils % (auto) 1.7 % (0.0-7.0); Hematocrit 34.9 % (36.0-46.0); Mean Corpuscular Hemoglobin 24.8 pg (28.0-32.0); Mean Corpuscular Hgb Conc. 31.9 g/dL (32.0-36.0); Mean Corpuscular Volume 77.5 fL (80.0-100.0); Monocytes # (auto) 0.5 10 ^3/uL (0-1.3); Monocytes % (auto) 11.6 % (0.0-12.0); Neutrophils % (auto) 48.8 % (37.0-80.0); Platelet Count (auto) 217 10^3/uL (140-450); Red Cell Distribution Width 17.6 % (11.8-14.3)
[2024-05-02 09:09] LABS: Alanine Aminotransferase 12 U/L (7-40); Albumin 4.2 g/dL (3.2-4.8); Alkaline Phosphatase 103 U/L (46-116); Anion Gap 6 (5-15); Aspartate Aminotransferase 12 U/L (13-40); BUN/Creatinine Ratio 16.5 (10.0-20.0); Bilirubin, Direct 0.1 mg/dL (<0.3); Bilirubin, Total 0.4 mg/dL (0.2-1.0); Blood Urea Nitrogen 19 mg/dL (9-23); Calcium 9.9 mg/dL (8.7-10.4); Carbon Dioxide 30 mmol/L (20-31); Chloride 105 mmol/L (98-107); Cholesterol 165 mg/dL (< 200); Glucose 101 mg/dL (74-106); HDL Cholesterol 92 mg/dL (40-59); LDL Cholesterol 60 mg/dL (< 100); Potassium 4.7 mmol/L (3.5-5.1); Sodium 141 mmol/L (136-145); Total Protein 6.4 g/dL (5.7-8.2); Triglycerides 64 mg/dL (< 150)
== END | disposition home or self-care (01) ==
LOC: LAB 07:46
PROVIDERS: ATTEND Internal Medicine Cardiovascular Disease
DX: E11.9 Type 2 diabetes mellitus without complications (principal); I10 Essential (primary) hypertension; E55.9 Vitamin D deficiency, unspecified; D51.3 Other dietary vitamin B12 deficiency anemia; D64.9 Anemia, unspecified; R53.1 Weakness; R00.2 Palpitations; R30.0 Dysuria
CPT/HCPCS: 36415; 80053; 80061; 80076; 81003; 83036; 84439; 84443; 85025

== ENCOUNTER → 2024-05-06 | Outpatient (CLI) | payer MEDICARE, MEDICAID ==
--- NOTE | 2024-05-09 08:43 | DVHSR ---
APPROVED REPORT EXAM: Two-dimensional and M-mode echocardiogram with Doppler and color Doppler. DIMENSIONS LVDd4.6 (3.8-5.7cm)LA (2D)4.1 (1.9-4.0cm)Aortic Root3.3 (2.0-3.7cm) LVDs3.2 (2.5-4.0cm)LA (MM) (1.9-4.0cm)Aortic Cusp Exc2.2 (1.5-2.0cm) EF (%) 58.4 (55-70%)Rt. Atrium3.8 (1.9-4.0cm)Asc. Aorta cm IVSd1.2 (0.7-1.1cm)RV (D)4.1 (1.8-2.4cm) PWd1.1 (0.7-1.1cm) Mitral Valve MitralMitral Stenosis E wave0.60m/sMV Mean GR.mmHg A wave0.94m/sMV Peak GR.mmHg E/A ratio0.62D MVAcm2 DECEL [id number] 1/2 Timems Aortic Valve Aortic ValveAortic Stenosis V10.98m/Eric Mean GR.4mmHg V21.49m/Eric Peak GR.9mmHg Pulmonic Valve V20.82m/s Tricuspid Valve TR Velocity2.33m/s [id number] LEFT VENTRICLE The Ejection Fraction is >55%. ATRIA The left atrium is mildly dilated. The right atrium size is normal. MITRAL VALVE The mitral valve is normal in structure and function. There is no mitral valve regurgitation noted. PULMONIC VALVE The pulmonic valve is not well visualized. There is mild pulmonic valvular regurgitation. TRICUSPID VALVE The tricuspid valve is grossly normal. There is trace to mild tricuspid regurgitation. AORTIC VALVE The aortic valve opens well. No aortic regurgitation is present. GREAT VESSELS The aortic root is normal size. PERICARDIAL EFFUSION There is no pericardial effusion. Conclusion EF >55% MILD PI MILD TR
== END | disposition home or self-care (01) ==
LOC: Rad HDHVI 14:12
PROVIDERS: ATTEND Internal Medicine Cardiovascular Disease
DX: I08.8 Other rheumatic multiple valve diseases (principal); I11.9 Hypertensive heart disease without heart failure; E78.5 Hyperlipidemia, unspecified
CPT/HCPCS: 93306

== ENCOUNTER → 2024-05-14 | Outpatient (CLI) | payer OTHER, MEDICAID | END | disposition home or self-care (01) | LOC: Rad HDHVI 08:37 | PROVIDERS: ATTEND Internal Medicine Cardiovascular Disease | DX: I10 Essential (primary) hypertension (principal) | CPT/HCPCS: 93880 ==

== ENCOUNTER → 2024-05-26 | Outpatient (CLI) | payer OTHER, MEDICAID ==
[~2024-05-26] VITALS: Ht 171.4 cm; Wt 91.6 kg
[~2024-05-26] MED LIST changes: +ADENOSINE 77 MG in GIVE UN-DILUTED 0 ML IV ONE; +ADENOSINE 90 MG/30 ML INJ IV ONE
== END | disposition home or self-care (01) ==
LOC: Rad HDHVI 09:14
PROVIDERS: ATTEND Internal Medicine Cardiovascular Disease
DX: I49.3 Ventricular premature depolarization (principal); I11.0 Hypertensive heart disease with heart failure; I50.33 Acute on chronic diastolic (congestive) heart failure; I73.9 Peripheral vascular disease, unspecified; I49.5 Sick sinus syndrome; R00.2 Palpitations; R06.02 Shortness of breath; E78.00 Pure hypercholesterolemia, unspecified; Z95.0 Presence of cardiac pacemaker; Z82.49 Family history of ischemic heart disease and other diseases of the circulatory system
CPT/HCPCS: 78452; 93005; 93017; A9500; J0153; 96374; 96375

== ENCOUNTER → 2024-08-13 | Outpatient (CLI) | payer OTHER, MEDICAID ==
[~2024-08-13] MED LIST changes: -ADENOSINE 77 MG in GIVE UN-DILUTED 0 ML IV ONE; -ADENOSINE 90 MG/30 ML INJ IV ONE
[2024-08-13 11:40] VITALS: BP 136/67; PULSE 76; RESP 16; O2SAT 98
[2024-08-13] MEDS: ONDANSETRON HCL 4 MG/2 ML VIAL ONE (11:56)
[2024-08-13] MEDS: levoFLOXacin 500MG 100 ML IV ONE ×2 (11:56→12:07)
[2024-08-13] MEDS: ONDANSETRON HCL 4 MG/2 ML VIAL IV ONE (12:03)
[2024-08-13] MEDS: SODIUM CHLORIDE 0.9% 250 ML IV ONE (12:07)
[2024-08-13 14:12] VITALS: BP 132/60; PULSE 66; RESP 16; O2SAT 98
== END | disposition home or self-care (01) ==
LOC: CHF HDHVI 11:40
PROVIDERS: ATTEND Internal Medicine Cardiovascular Disease
DX: A09 Infectious gastroenteritis and colitis, unspecified (principal); I11.0 Hypertensive heart disease with heart failure; I50.33 Acute on chronic diastolic (congestive) heart failure; E78.00 Pure hypercholesterolemia, unspecified; R00.2 Palpitations; R06.02 Shortness of breath
CPT/HCPCS: 96361; 96365; 96375; G0463; J1956; J2405; J7050

== ENCOUNTER → 2024-08-14 | Outpatient (CLI) | payer OTHER, MEDICAID ==
[~2024-08-14] VITALS: Ht 30.5 cm; Wt 0.5 kg
[2024-08-14 11:06] VITALS: BP 122/57; PULSE 67; RESP 18; O2SAT 98
[2024-08-14] MEDS: ONDANSETRON HCL 4 MG/2 ML VIAL ONE (11:07)
[2024-08-14] MEDS: ONDANSETRON HCL 4 MG/2 ML VIAL IV ONE (11:22)
[2024-08-14] MEDS: SODIUM CHLORIDE 0.9% 250 ML IV ONE (11:23)
[2024-08-14 12:26] VITALS: BP 104/41; PULSE 63; RESP 18; O2SAT 98
== END | disposition home or self-care (01) ==
LOC: CHF HDHVI 10:59
PROVIDERS: ATTEND Internal Medicine Cardiovascular Disease
DX: A09 Infectious gastroenteritis and colitis, unspecified (principal); E78.5 Hyperlipidemia, unspecified; I11.0 Hypertensive heart disease with heart failure; I50.9 Heart failure, unspecified
CPT/HCPCS: 96374; G0463; J2405; 96360; 96375

== ENCOUNTER 2024-10-26 19:10 | Inpatient (IN) | payer OTHER, MEDICARE, MEDICAID ==
[~2024-10-26] VITALS: Ht 170.2 cm; Wt 92.8 kg
--- NOTE | 2024-10-26 19:18 | ED.PDOC ---
Back pain HPI HPI Comments 79-year-old female with history of past thrombolytic stroke complaining of sudden onset of frontal left-sided headache 8/10 on pain scale. Patient states headache started around 1:30 p.m. today reports just general weakness. Notes has not taken anything for the pain. He reports no known injury. Denies any numbness, weakness, chest pain, difficulty breathing, nausea, vomiting, vision change, slurred speech, recent travel, abdominal pain or diarrhea. Time Seen by MD: 19:17 Primary Care Provider: MORA Reviewed Notes: Nurses Notes, Medications, Allergies Allergies: Coded Allergies: Oxycodone (Verified Allergy, Unknown, 10/26/24) Tramadol (Unverified Adverse Reaction, Severe, N/V, 02/21/23) Home Meds Active Scripts Hydrocodone-Acetaminophen (Hydrocodone Bitartrate/AC 5-325 mg) 1 Tab Tab, 1 TAB PO Q6HP PRN, #20 TAB Prov:FIDELIA JAMIL PAC 07/16/23 Reported Medications Baclofen (Baclofen) 20 Mg Tab, 10 MG PO BID, TAB 02/21/23 Magnesium Oxide (MAGNESIUM OXIDE) 400 Mg Tab, 400 MG OR BID, TAB 02/21/23 Loratadine (Claritin) 10 Mg Tab, 10 MG PO DAILY, TAB 02/21/23 Ascorbic Acid (VITAMIN C) 500 Mg Cap, 500 MG PO DAILY, CAP 02/21/23 Ferrous Sulfate (Ra Iron) 65 Mg Tab, 65 MG PO BID, TAB 02/21/23 Nifedipine (Nifedipine Er) 60 Mg Tab, 60 MG PO, TAB 02/21/23 Zinc Gluconate (Zinc) 50 Mg Tab, 50 MG PO DAILY, TAB 06/22/20 Cyanocobalamin (B12) 1,000 Mcg Tab, 1000 MCG PO DAILY, TAB 06/22/20 Alpha Tocopheryl Acid Succinat (VITAMIN E) 400 Unit Tab, 400 UNIT PO DAILY, TAB 06/22/20 Cholecalciferol (D3 High Potency) 5,000 Unit Cap, 2 CAP PO DAILY, CAP 06/22/20 Acetaminophen (Tylenol Extra Strength) 500 Mg Tab, 2 TAB PO Q6HP PRN for MILD PAIN (1-3 PAIN SCALE), TAB 06/22/20 Levothyroxine Sodium (Levothyroxine Sodium) 50 Mcg Tab, 50 MCG PO QAM for 30 Days, MCG 06/22/20 Latanoprost (LATANOPROST) 0.005 % Carmencita, 1 DROP EACHEYE HS 05/22/18 Enalapril Maleate (Enalapril Maleate) 10 Mg Tab, 20 MG PO DAILY 05/22/18 Furosemide (Furosemide) 20 Mg Tab, 1 TAB PO DAILY 05/22/18 Dorzolamide-Timolol (Dorzolamide Hcl/Timolol M) 1 Ml Carmencita, 1 DROP EACHEYE BID 05/22/18 Information Source: Patient Past Medical History PAST MEDICAL HISTORY: Anemia, Cancer, CHF, HTN, Thyroid Surgical History: Hysterectomy, Pacemaker 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 Family History Family History: Reviewed,noncontributory to illness Social History Smoker: Non-Smoker Alcohol: Rarely Drugs: Denies Drug Use Lives In: Home Constitutional: denies: chills, diaphoresis, fatigue, fever, malaise, sweats, weakness, others EENTM: denies: blurred vision, double vision, ear bleeding, ear discharge, ear drainage, ear pain, ear ringing, eye pain, eye redness, hearing loss, mouth pain, mouth swelling, nasal discharge, nose bleeding, nose congestion, nose pain, photophobia, tearing, throat pain, throat swelling, voice changes, others Respiratory: denies: cough, hemoptysis, orthopnea, SOB at rest, shortness of breath, SOB with excertion, stridor, wheezing, others Cardiovascular: denies: chest pain, dizzy spells, diaphoresis, Dyspnea on exertion, edema, irregular heart beat, left arm pain, lightheadedness, palpitations, PND, syncope, others Gastrointestinal: denies: abdomen distended, abdominal pain, blood streaked bowels, constipated, diarrhea, dysphagia, difficulty swallowing, hematemesis, melena, nausea, poor appetite, poor fluid intake, rectal bleeding, rectal pain, vomiting, others Genitourinary: denies: abnormal vagina bleeding, burning, dyspareunia, dysuria, flank pain, frequency, hematuria, incontinence, pain, , vagina discharge, urgency, others Neurological: reports: headache; denies: dizziness, fainting, left sided numbness, left sided weakness, numbness, paresthesia, pre-existing deficit, right sided numbness, right sided weakness, seizure, speech problems, tingling, tremors, weakness, others Musculoskeletal: denies: back pain, gout, joint pain, joint swelling, muscle pain, muscle stiffness, neck pain, others Integumetry: denies: bruises, change in color, change in hair/nails, dryness, laceration, lesions, lumps, rash, wounds, others Allergic/Immunocompromised: denies: Difficulty Healing, Frequent Infections, Hives, Itching, others Hematologic/Lymphatic: denies: anemia, blood clots, easy bleeding, easy bruising, swollen glands, others Endocrine: denies: excessive hunger, excessive sweating, excessive thirst, excessive urination, flushing, intolerance to cold, intolerance to heat, unexplained weight gain, unexplained weight loss, others Psychiatric: denies: anxiety, bipolar disorder, depression, hopeless, panic disorder, schizophrenia, sleepless, suicidal, others Physical Exam General Appearance: No Apparent Distress, Normal HEENT: Normal ENT Inspection, Pharynx Normal, TMs Normal Neck: Full Range of Motion, Non-Tender Respiratory: Lungs Clear, No Accessory Muscle Use, No Respiratory Distress, Normal Breath Sounds Cardiovascular: No Edema, No JVD, No Murmur, No Gallop, Normal Peripheral Pulses, Regular Rate/Rhythm Breast Exam: Deferred Gastrointestinal: No Organomegaly, Non Tender, No Pulsatile Mass, Normal Bowel Sounds, Soft Genitalia: Deferred Pelvic: Deferred Rectal: Deferred Extremities: Normal capillary refill, Normal inspection, Normal range of motion, Non-tender, No pedal edema Musculoskeletal : Apperance: Normal Neurologic: Alert, No Motor Deficits, Normal Affect, Normal Mood, No Sensory Deficits Cerebellar Function: Normal Reflexes: Normal Skin: Dry, Normal Color, Warm Lymphatic: No Adenopathy Was a procedure done? Was a procedure done?: No Back Pain Differential Dx Differential Diagnosis: Fracture, Musculoskeletal Pain, Strain X-Ray, Labs, Meds, VS Vital Signs Date Time Temp Pulse Resp B/P (MAP) Pulse Ox O2 Delivery O2 Flow Rate FiO2 10/26/24 23:03 98.3 68 16 134/65 (88) 96 98.3 10/26/24 22:30 98.3 10/26/24 22:30 Room Air* 0 21 10/26/24 19:15 97.4 69 18 98/51 (67) 99 97.4 Lab Test 10/26/24 22:31 7/27/25 20:48 Range/Units Urine Color Colorless Yellow Urine Clarity Clear Clear Urine pH 5.0 5.0-9.0 Urine Specific [place] 1.008 1.001-1.035 Urine Protein Negative Negative Urine Ketones Negative Negative Urine Blood Negative Negative /uL Urine Nitrite Negative Negative Urine Bilirubin Negative Negative Urine Urobilinogen Normal Negative mg/dL Urine Leukocyte Esterase Negative Negative /uL Urine RBC 1 0 - 4 /hpf Urine Microscopic WBC 1 0-5 /HPF Urine Squamous Epithelial Cells Few <5 /hpf Urine Bacteria Few H None Seen /hpf Urine Hyaline Casts Few 0 - 2 /lpf Urine Glucose Normal Normal mg/dL White Blood Count 5.2 4.4-10.8 10^3/uL Red Blood Count 4.12 4.0-5.20 10^6/uL Hemoglobin 10.7 L 12.2-16.2 g/dL Hematocrit 32.8 L 36.0-46.0 % Mean Corpuscular Volume 79.6 L 80.0-100.0 fL Mean Corpuscular Hemoglobin 26.0 L 28.0-32.0 pg Mean Corpuscular Hemoglobin Concent 32.7 32.0-36.0 g/dL Red Cell Distribution Width 17.6 H 11.8-14.3 % Platelet Count 221 140-450 10^3/uL Mean Platelet Volume 7.8 6.9-10.8 fL Neutrophils (%) (Auto) 60.6 37.0-80.0 % Lymphocytes (%) (Auto) 27.0 10.0-50.0 % Monocytes (%) (Auto) 10.0 0.0-12.0 % Eosinophils (%) (Auto) 1.5 0.0-7.0 % Basophils (%) (Auto) 0.9 0.0-2.0 % Neutrophils # (Auto) 3.1 1.6-8.6 10 ^3/uL Lymphocytes # (Auto) 1.4 0.4-5.4 10 ^3/uL Monocytes # (Auto) 0.5 0-1.3 10 ^3/uL Eosinophils # (Auto) 0.1 0-0.8 10 ^3/uL Basophils # (Auto) 0 0-0.2 10 ^3/uL Nucleated Red Blood Cells 0.0 % Sodium Level 138 136-145 mmol/L Potassium Level 5.3 H 3.5-5.1 mmol/L Chloride Level 106 98-107 mmol/L Carbon Dioxide Level 24 20-31 mmol/L Anion Gap 8 5-15 Blood Urea Nitrogen 23 9-23 mg/dL Creatinine 1.51 H 0.550-1.02 mg/dL Glomerular Filtration Rate Calc 35 >90 mL/min BUN/Creatinine Ratio 15.2 10.0-20.0 Serum Glucose 99 74-106 mg/dL Calcium Level 9.3 8.7-10.4 mg/dL Total Bilirubin 0.2 0.2-1.0 mg/dL Aspartate Amino Transferase (AST) 18 13-40 U/L Alanine Aminotransferase (ALT) 13 7-40 U/L Alkaline Phosphatase 109 46-116 U/L Total Protein 6.5 5.7-8.2 g/dL Albumin 4.3 3.2-4.8 g/dL Current Medications Medications (Trade) Dose Ordered Sig/Grace Route Start Time Stop Time Status Last Admin Sodium Chloride 500 ml @ 500 mls/hr Q1H ONCE IV 10/26/24 19:45 10/26/24 20:44 DC 10/26/24 19:45 Prochlorperazine Edisylate (Compazine Inj) 5 mg ONCE ONCE IV 10/26/24 20:00 10/26/24 20:01 DC 10/26/24 20:58 Dexamethasone Sodium Phosphate (Decadron Injection) 10 mg ONCE ONCE IV 10/26/24 20:00 10/26/24 20:01 DC 10/26/24 20:58 Acetaminophen (Tylenol Tablet Or Capsule) 500 mg ONCE ONCE PO 10/26/24 20:00 10/26/24 20:01 DC 10/26/24 20:55 X-Ray, Labs, Meds, VS Comment CT brain/head FINDINGS: There is no evidence of acute intracranial hemorrhage, extra-axial collection, mass effect, midline shift, herniation or hydrocephalus. The ventricles, sulci and cisterns are age appropriate. The uribe-white differentiation is intact. Patchy periventricular and subcortical white matter hypoattenuation is nonspecific but may be related to small vessel ischemic disease. The visualized paranasal sinuses and mastoid air cells are clear. The surrounding soft tissues and osseous structures are unremarkable. IMPRESSION: 1. No acute intracranial abnormality. Patient given 5 mg IV push Compazine and 10 mg IV push Decadron for headache. Continues with moderate pain. Elevated creatinine and potassium patient reports no history of renal disease, GFR 30. Admission for renal consult, consider MRI brain in the morning for intractable headache, admit for UTI. Patient Agrees with plan of care, does not want to sign out AMA. Time of 1ST Reevaluation: 19:18 Reevaluation 1ST: Unchanged Time of 2ND Reevaluation: 22:00 Reevaluation 2ND: Unchanged Time of 3RD Reevaluation: 23:42 Reevaluation 3RD: Unchanged Patient Education/Counseling: Diagnosis, Treatment, Prognosis, Need For Follow Up Family Education/Counseling: No Family Present SEPSIS Sepsis Screen Physician Orders Head Without Contrast (10/26/24 19:24) Heplock Iv (10/26/24 ) Vital Signs Date Time Temp Pulse Resp B/P (MAP) Pulse Ox O2 Delivery O2 Flow Rate FiO2 10/26/24 23:03 98.3 68 16 134/65 (88) 96 98.3 10/26/24 22:30 98.3 10/26/24 22:30 Room Air* 0 21 10/26/24 19:15 97.4 69 18 98/51 (67) 99 97.4 Laboratory Tests Test 10/26/24 20:48 White Blood Count 5.2 10^3/uL (4.4-10.8) Medications Medications Dose Ordered Sig/Grace Route Start Time Stop Time Status Last Admin Dose Admin Acetaminophen 500 mg ONCE ONCE PO 10/26/24 20:00 10/26/24 20:01 DC 10/26/24 20:55 Dexamethasone Sodium Phosphate 10 mg ONCE ONCE IV 10/26/24 20:00 10/26/24 20:01 DC 10/26/24 20:58 Prochlorperazine Edisylate 5 mg ONCE ONCE IV 10/26/24 20:00 10/26/24 20:01 DC 10/26/24 20:58 Sodium Chloride 500 ml @ 500 mls/hr Q1H ONCE IV 10/26/24 19:45 10/26/24 20:44 DC 10/26/24 19:45 Departure 1 Departure Time of Disposition: 22:00 Impression: Primary Impression: Acute renal failure Qualified Codes: N17.9 - Acute kidney failure, unspecified Additional Impressions: Intractable headache Qualified Codes: R51.9 - Headache, unspecified UTI (urinary tract infection) Qualified Codes: N30.00 - Acute cystitis without hematuria Disposition: 09 ADMITTED INPATIENT Condition: Stable Discharged With: Self Critical Care Note Critical Care Time?: No Stability Stability form required: ELIZABETH Koch Oct 26, 2024 19:18
[2024-10-26] MEDS: SODIUM CHLORIDE 0.9% 500 ML IV ONE (19:45)
[2024-10-26] MEDS: ACETAMINOPHEN 500 MG TAB or CAP PO ONE (20:55)
[2024-10-26 20:57] LABS: Hemoglobin 10.7 g/dL (12.2-16.2); Mean Corpuscular Volume 79.6 fL (80.0-100.0)
[2024-10-26] MEDS: PROCHLORPERAZINE EDISYLATE 5 MG/ML 2ML VIAL IV ONE (20:58)
[2024-10-26 20:59] LABS: Hematocrit 32.8 % (36.0-46.0); Mean Corpuscular Hemoglobin 26.0 pg (28.0-32.0); Nucleated Red Blood Cells % 0.0 %
[2024-10-26 21:15] LABS: Alanine Aminotransferase 13 U/L (7-40); Albumin 4.3 g/dL (3.2-4.8); Alkaline Phosphatase 109 U/L (46-116); Anion Gap 8 (5-15); BUN/Creatinine Ratio 15.2 (10.0-20.0); Blood Urea Nitrogen 23 mg/dL (9-23); Calcium 9.3 mg/dL (8.7-10.4); Carbon Dioxide 24 mmol/L (20-31); Chloride 106 mmol/L (98-107); Glucose 99 mg/dL (74-106); Sodium 138 mmol/L (136-145); Total Protein 6.5 g/dL (5.7-8.2)
[2024-10-26 21:23] LABS: Bilirubin, Total 0.2 mg/dL (0.2-1.0); Potassium 5.3 mmol/L (3.5-5.1)
--- NOTE | 2024-10-26 21:26 | DVH ---
EXAM: CT HEAD WITHOUT CONTRAST INDICATION: head pain TECHNIQUE: CT of the head without intravenous contrast. Radiation Dose Information: CT Dose: CTDI volume is 56.74 mGy. Dose-length product is 1002.89 mGy*cm The dose indicators for CT are the volume Computed Tomography (CT) Dose Index (CTDIvol) and the Dose Length Product (DLP), and are measured in units of mGy and mGy-cm, respectively. These indicators are not patient dose, but values generated from the CT scanner acquisition factors. The report includes radiation exposure data for exposures received during this examination. COMPARISON: None FINDINGS: There is no evidence of acute intracranial hemorrhage, extra-axial collection, mass effect, midline s hift, herniation or hydrocephalus. The ventricles, sulci and cisterns are age appropriate. The uribe-white differentiation is intact. Patchy periventricular and subcortical white matter hypoattenuation is nonspecific but may be related to small vessel ischemic disease. The visualized paranasal sinuses and mastoid air cells are clear. The surrounding soft tissues and osseous structures are unremarkable. IMPRESSION: 1. No acute intracranial abnormality.
[2024-10-26 22:47] LABS: Urine Protein, UAD Negative (Negative)
[2024-10-26] MEDS ORDERED: ONDANSETRON HCL 4 MG/2 ML VIAL IV PRN (23:45)
[2024-10-27] VITALS (8 sets, daily range): BP systolic 107–148; BP diastolic 50–86; PULSE 65–78; RESP 14–19; TEMP 96.9–97.9; O2SAT 95–100
[2024-10-27] MEDS: cefTRIAXone 1GM/50ML D5W 50 ML IV ONE (00:35)
[2024-10-27] MEDS: ACETAMINOPHEN 325 MG TAB PO PRN (00:40)
[2024-10-27] MEDS: SODIUM ZIRCONIUM CYCL 10 GM PAK PO ONE (03:07)
--- NOTE | 2024-10-27 03:43 | DVHHP2 ---
History of Present Illness Reason for Visit: Headache History of Present Illness 79-year-old female presents for evaluation of a headache. Patient reports a one day history of a frontal headache with associated dizziness. Denies nausea or vomiting. No unilateral weakness or slurred speech. No blurred vision. No other acute complaints. Past Medical History Hypertension, CHF, thyroid Past Surgical History Pacemaker, hysterectomy Family History Noncontributory Smoke: No ALCOHOL: occassional Drugs: None Lives: with Family Review of Systems Review of Systems Review of systems are currently negative otherwise addressed in HPI. Allergies: Coded Allergies: Oxycodone (Verified Allergy, Unknown, 10/26/24) Tramadol (Unverified Adverse Reaction, Severe, N/V, 02/21/23) Medications Current Medications Medications Dose Ordered Sig/Grace Route Start Time Stop Time Status Last Admin Dose Admin Sumatriptan Succinate 50 mg Q2HP PRN PO 10/26/24 23:45 Enalapril Maleate 10 mg DAILY PO 10/27/24 10:00 UNV Magnesium Oxide 400 mg BID PO 10/27/24 10:00 Levothyroxine Sodium 50 mcg QAM@0600 PO 10/27/24 06:00 Furosemide 20 mg DAILY PO 10/27/24 10:00 Ondansetron HCl 4 mg Q4HP PRN IV 10/26/24 23:45 Enoxaparin Sodium 40 mg DAILY SC 10/27/24 10:00 Acetaminophen 650 mg Q6HP PRN PO 10/26/24 23:45 10/27/24 00:40 650 MG Exam Vital Signs Vital Signs Date Time Temp Pulse Resp B/P (MAP) Pulse Ox O2 Delivery O2 Flow Rate FiO2 10/27/24 01:06 65 16 97 Room Air* 0 21 10/26/24 23:03 98.3 134/65 (88) 98.3 Exam Gen: 79-year-old female in mild distress Skin: Warm, dry, normal color and texture, no rash. HEENT: Normocephalic atraumatic, mucous membranes moist and pink. Neck: Cervical and supraclavicular nodes normal without enlargement, trachea is midline, thyroid gland is normal without masses. Pulmonary: Clear to auscultation and percussion bilaterally. Cardiac: Regular rate and rhythm. No murmur Abdomen: Soft, nontender, nondistended, bowel sounds present all 4 quadrants, no guarding, no rigidity, no organomegaly. Extremities: No cyanosis, clubbing, no edema Neuro: Cranial nerves II through XII grossly intact, normal affect and speech, no focal motor deficits. Labs/Xrays ORDERING PHYSICIAN: ELIZABETH SMITH PROCEDURE(s): HWOCT - HEAD WITHOUT CONTRAST REASON: head pain ORDER NUMBER(s): [id number], ACCESSION NUMBER(s): [id number] EXAM: CT HEAD WITHOUT CONTRAST INDICATION: head pain TECHNIQUE: CT of the head without intravenous contrast. Radiation Dose Information: CT Dose: CTDI volume is 56.74 mGy. Dose-length product is 1002.89 mGy*cm The dose indicators for CT are the volume Computed Tomography (CT) Dose Index (CTDIvol) and the Dose Length Product (DLP), and are measured in units of mGy and mGy-cm, respectively. These indicators are not patient dose, but values generated from the CT scanner acquisition factors. The report includes radiation exposure data for exposures received during this examination. COMPARISON: None FINDINGS: There is no evidence of acute intracranial hemorrhage, extra-axial collection, mass effect, midline shift, herniation or hydrocephalus. The ventricles, sulci and cisterns are age appropriate. The uribe-white differentiation is intact. Patchy periventricular and subcortical white matter hypoattenuation is nonspecific but may be related to small vessel ischemic disease. The visualized paranasal sinuses and mastoid air cells are clear. The surrounding soft tissues and osseous structures are unremarkable. IMPRESSION: 1. No acute intracranial abnormality. Labs Test 10/26/24 22:31 10/26/24 20:48 Range/Units Urine Color Colorless Yellow Urine Clarity Clear Clear Urine pH 5.0 5.0-9.0 Urine Specific [place] 1.008 1.001-1.035 Urine Protein Negative Negative Urine Ketones Negative Negative Urine Blood Negative Negative /uL Urine Nitrite Negative Negative Urine Bilirubin Negative Negative Urine Urobilinogen Normal Negative mg/dL Urine Leukocyte Esterase Negative Negative /uL Urine RBC 1 0 - 4 /hpf Urine Microscopic WBC 1 0-5 /HPF Urine Squamous Epithelial Cells Few <5 /hpf Urine Bacteria Few H None Seen /hpf Urine Hyaline Casts Few 0 - 2 /lpf Urine Glucose Normal Normal mg/dL White Blood Count 5.2 4.4-10.8 10^3/uL Red Blood Count 4.12 4.0-5.20 10^6/uL Hemoglobin 10.7 L 12.2-16.2 g/dL Hematocrit 32.8 L 36.0-46.0 % Mean Corpuscular Volume 79.6 L 80.0-100.0 fL Mean Corpuscular Hemoglobin 26.0 L 28.0-32.0 pg Mean Corpuscular Hemoglobin Concent 32.7 32.0-36.0 g/dL Red Cell Distribution Width 17.6 H 11.8-14.3 % Platelet Count 221 140-450 10^3/uL Mean Platelet Volume 7.8 6.9-10.8 fL Neutrophils (%) (Auto) 60.6 37.0-80.0 % Lymphocytes (%) (Auto) 27.0 10.0-50.0 % Monocytes (%) (Auto) 10.0 0.0-12.0 % Eosinophils (%) (Auto) 1.5 0.0-7.0 % Basophils (%) (Auto) 0.9 0.0-2.0 % Neutrophils # (Auto) 3.1 1.6-8.6 10 ^3/uL Lymphocytes # (Auto) 1.4 0.4-5.4 10 ^3/uL Monocytes # (Auto) 0.5 0-1.3 10 ^3/uL Eosinophils # (Auto) 0.1 0-0.8 10 ^3/uL Basophils # (Auto) 0 0-0.2 10 ^3/uL Nucleated Red Blood Cells 0.0 % Sodium Level 138 136-145 mmol/L Potassium Level 5.3 H 3.5-5.1 mmol/L Chloride Level 106 98-107 mmol/L Carbon Dioxide Level 24 20-31 mmol/L Anion Gap 8 5-15 Blood Urea Nitrogen 23 9-23 mg/dL Creatinine 1.51 H 0.550-1.02 mg/dL Glomerular Filtration Rate Calc 35 >90 mL/min BUN/Creatinine Ratio 15.2 10.0-20.0 Serum Glucose 99 74-106 mg/dL Calcium Level 9.3 8.7-10.4 mg/dL Total Bilirubin 0.2 0.2-1.0 mg/dL Aspartate Amino Transferase (AST) 18 13-40 U/L Alanine Aminotransferase (ALT) 13 7-40 U/L Alkaline Phosphatase 109 46-116 U/L Total Protein 6.5 5.7-8.2 g/dL Albumin 4.3 3.2-4.8 g/dL SEPSIS Sepsis Screen Date sepsis recognized/suspect: Oct 26, 2024 Time Sepsis recognized/suspect: 1914 Recent Procedure: No On Antibiotic Therapy: No Respiratory Rate >20: No Heart Rate >90: No Temp<36 C (96.8 F) or >38.3 C: No SBP <90 or MAP <65 mmHG: No New Acute Mental Status Change: No Is the patient on CPAP, BIPAP,: No Physician Orders Heplock Iv (10/26/24 ) Sumatriptan Succinate Tablet (Imitrex Ta (10/26/24 23:45) Enalapril Tablet (Vasotec Tablet) (10/27/24 10:00) Magnesium Oxide Tablet (Mag-Ox Tablet) (10/27/24 10:00) Levothyroxine Tablet (Synthroid Tablet) (10/27/24 06:00) Furosemide Tablet (Lasix Tablet) (10/27/24 10:00) Brain Head Wo Contrast (10/26/24 23:38) Admit (10/26/24 23:38) Ondansetron Hcl (Zofran) (10/26/24 23:45) Enoxaparin Sodium (Lovenox) (10/27/24 10:00) Cardiac Diet-2gna,Lofat,Lochol (10/27/24 Breakfast) Condition: Stable (10/26/24 23:38) Acetaminophen Tablet (Tylenol Tablet) (10/26/24 23:45) Bedrest With Bathroom Privileg (10/26/24 23:38) Vital Signs Date Time Temp Pulse Resp B/P (MAP) Pulse Ox O2 Delivery O2 Flow Rate FiO2 10/27/24 01:06 65 16 97 Room Air* 0 21 10/26/24 23:03 98.3 68 16 134/65 (88) 96 98.3 10/26/24 22:30 98.3 10/26/24 22:30 Room Air* 0 21 Laboratory Tests Test 10/26/24 20:48 White Blood Count 5.2 10^3/uL (4.4-10.8) Medications Medications Dose Ordered Sig/Grace Route Start Time Stop Time Status Last Admin Dose Admin Acetaminophen 500 mg ONCE ONCE PO 10/26/24 20:00 10/26/24 20:01 DC 10/26/24 20:55 500 MG Acetaminophen 650 mg Q6HP PRN PO 10/26/24 23:45 10/27/24 00:40 650 MG Ceftriaxone Sodium 50 ml @ 100 mls/hr ONCE ONCE IV 10/26/24 23:45 10/27/24 00:14 DC 10/27/24 00:35 100 MLS/HR Dexamethasone Sodium Phosphate 10 mg ONCE ONCE IV 10/26/24 20:00 10/26/24 20:01 DC 10/26/24 20:58 10 MG Prochlorperazine Edisylate 5 mg ONCE ONCE IV 10/26/24 20:00 10/26/24 20:01 DC 10/26/24 20:58 5 MG Sodium Chloride 500 ml @ 500 mls/hr Q1H ONCE IV 10/26/24 19:45 10/26/24 20:44 DC 10/26/24 19:45 500 MLS/HR Zirconium Oxide 10 gm ONCE ONCE PO 10/27/24 03:00 10/27/24 03:01 DC 10/27/24 03:07 10 GM Assessment/Plan Assessment/Plan Assessment Intractable headache Chronic kidney disease Hypertension Plan Admit the [facility] to the hospitalist MRI of the brain pending Resume home medications Continue treatment per orders. Plan discussed with: Patient My Orders Orders - [facility] RUVALCABA AGACNP Procedure Category Date Status Time Sumatriptan Succinate PHA 10/26/24 In Process Tablet (Imitrex Ta 23:45 Enalapril Tablet PHA 10/27/24 Pending (Vasotec Tablet) 10:00 Magnesium Oxide PHA 10/27/24 In Process Tablet (Mag-Ox Tablet) 10:00 Levothyroxine Tablet PHA 10/27/24 In Process (Synthroid Tablet) 06:00 Furosemide Tablet PHA 10/27/24 In Process (Lasix Tablet) 10:00 Brain Head Wo Contrast MRI 10/26/24 Logged 23:38 Admit ADMIT 10/26/24 Transmitted 23:38 Ondansetron Hcl PHA 10/26/24 In Process (Zofran) 23:45 Enoxaparin Sodium PHA 10/27/24 In Process (Lovenox) 10:00 Cardiac DIET 10/27/24 Transmitted Diet-2gna,Lofat,Lochol Breakfast Condition: Stable LISANDRA 10/26/24 In Process 23:38 Acetaminophen Tablet PHA 10/26/24 In Process (Tylenol Tablet) 23:45 Bedrest With Bathroom LISANDRA 10/26/24 In Process Privileg 23:38 Date of Service: Oct 26, 2024 Billing Provider: [facility] RUVALCABA Common Visit Codes: [id number] INP/OBS CARE (MOD) [facility] RUVALCABA Oct 27, 2024 03:43
[2024-10-27] MEDS: LEVOTHYROXINE SODIUM 50 MCG TAB PO SCH (05:26)
[2024-10-27] MEDS: ENOXAPARIN SOD 40 MG/0.4 ML SYRINGE SC SCH (08:39)
[2024-10-27] MEDS: FUROSEMIDE 20 MG TAB PO SCH (08:40)
[2024-10-27] MEDS: MAGNESIUM OXIDE 400 MG TAB PO SCH (08:40)
[2024-10-27] MEDS ORDERED: ENALAPRIL MALEATE 10 MG TAB PO SCH (10:00)
--- NOTE | 2024-10-27 12:08 | DVH ---
INDICATION: check for device TECHNIQUE: Frontal view of the chest. COMPARISON: XY CHEST PORTABLE on DOS: 03/02/23 FINDINGS: Left-sided pacemaker with leads in appropriate position. The heart and mediastinal contours are gross ly unremarkable. There is no evidence of pleural disease. The lungs are clear. The bony structure s of the chest are intact without fracture. IMPRESSION: 1. No evidence of acute disease.
--- NOTE | 2024-10-27 13:43 | DVHPN2 ---
Progress Note - Dictate Date Seen: Oct 27, 2024 Medical Necessity Reason Pt with a Central, PICC or Fol: No Subjective PT WITH MIGRAINE NOW WITH ACUTE EXACERBATION CT OF HEAD NEGATIVE HX OF ACCELERATED HTN CKD STAGE II HYPERKALEMIA SSS S/P PPI HX OF BREAST CA/ CYST vital signs Vital Sign Date Time Temp Pulse Resp B/P (MAP) Pulse Ox O2 Delivery O2 Flow Rate FiO2 10/27/24 08:50 96.9 76 17 148/81 (103) 98 96.9 10/27/24 08:00 Room Air* 0 21 Total Intake and Output 10/26/24 10/26/24 10/27/24 15:00 23:00 07:00 Intake Total 500 ml 300 ml Balance 500 ml 300 ml medications Current Medications Medications Dose Ordered Sig/Grace Route Start Time Stop Time Status Last Admin Dose Admin Enalapril Maleate 10 mg DAILY PO 10/27/24 10:00 Hold Levothyroxine Sodium 50 mcg QAM@0600 PO 10/27/24 06:00 10/27/24 05:26 50 MCG Furosemide 20 mg DAILY PO 10/27/24 10:00 10/27/24 08:40 20 MG Ondansetron HCl 4 mg Q4HP PRN IV 10/26/24 23:45 Acetaminophen 650 mg Q6HP PRN PO 10/26/24 23:45 10/27/24 00:40 650 MG laboratory and microbiology Laboratory Tests 10/26/24 20:48 Test 10/26/24 20:48 Range/Units Serum Glucose 99 74-106 mg/dL Problem List MIGRAINE NOW WITH ACUTE EXACERBATION CT OF HEAD NEGATIVE HX OF ACCELERATED HTN CKD STAGE II HYPERKALEMIA SSS S/P PPI HX OF BREAST CA/ CYST Assessment/Plan ESR LUPUS SCREEN MRI Plan discussed with: Patient THU CHANDLER MD Oct 27, 2024 13:43
[2024-10-27 14:19] LABS: Chloride 106 mmol/L (98-107); Potassium 4.9 mmol/L (3.5-5.1); Sodium 141 mmol/L (136-145)
[2024-10-27 14:20] LABS: Anion Gap 9 (5-15); Carbon Dioxide 26 mmol/L (20-31)
[2024-10-27 14:22] LABS: Calcium 10.6 mg/dL (8.7-10.4)
[2024-10-27 14:25] LABS: BUN/Creatinine Ratio 16.7 (10.0-20.0); Blood Urea Nitrogen 23 mg/dL (9-23); Glucose 139 mg/dL (74-106)
--- NOTE | 2024-10-27 14:40 | DVHPNRES ---
Progress Note Date Seen: Oct 27, 2024 Resident Creating Document: THUAN YE RESIDENT Medical Necessity Reason Pt with a Central, PICC or Fol: No Subjective Review of Systems Ari Roger is a 79-year-old female with past medical history of hypertension, HFpEF, hypothyroidism, history of breast cancer. He presented to the ER with chief complaint of left-sided headache, radiating to the neck. She complained of sharp, throbbing pain. She reported history of blood clot in carotid arteries in 2010, endorsed concern for a similar event. Her symptoms were associated with dizziness, blurring vision. She denied any prodromal of symptoms. No aggravating or relieving factors, no history of trauma, fever, chills, nausea, vomiting, neck rigidity. Her initial labs showed hemoglobin 10.7, high potassium and creatinine. On admission, she was treated with sumatriptan. CT head revealed no acute abnormality. She was examined at bedside today. She complains of mild residual headache. Other symptoms have subsided. Her blood pressure is high, rest of her vitals are WNL. Past surgical history: Pacemaker, hysterectomy, back surgery, knee replacement, pacemaker, glaucoma surgery Personal history: Denies smoking, alcohol use, recreational drug use. Lives in home. ROS: Constitutional: Denies weight loss, fever and chills. HEENT: Complains of headache. Blurry vision and dizziness on admission, resolved now. Respiratory: Denies shortness of breath and cough Cardiovascular: Denies chest discomfort or palpitations GI: Denies abdominal pain, nausea, vomiting and diarrhea. : Denies dysuria and urinary frequency. Musculoskeletal: Denies myalgias and joint pain Skin: Denies rash and pruritus. Neurological: Headaches, blurry vision, dizziness. Blurry vision and dizziness, resolved now. Objective vital signs Vital Sign Date Time Temp Pulse Resp B/P (MAP) Pulse Ox O2 Delivery O2 Flow Rate FiO2 10/27/24 13:00 97.5 68 19 133/74 (93) 100 97.5 10/27/24 08:00 Room Air* 0 21 Total Intake and Output 10/26/24 10/26/24 10/27/24 14:59 22:59 06:59 Intake Total 500 ml 300 ml Balance 500 ml 300 ml medications Current Medications Medications Dose Ordered Sig/Grace Route Start Time Stop Time Status Last Admin Dose Admin Enalapril Maleate 10 mg DAILY PO 10/27/24 10:00 Hold Levothyroxine Sodium 50 mcg QAM@0600 PO 10/27/24 06:00 10/27/24 05:26 50 MCG Furosemide 20 mg DAILY PO 10/27/24 10:00 10/27/24 08:40 20 MG Ondansetron HCl 4 mg Q4HP PRN IV 10/26/24 23:45 Acetaminophen 650 mg Q6HP PRN PO 10/26/24 23:45 10/27/24 00:40 650 MG Examination General: Patient alert and oriented in person, place and time. Patient following commands. HEENT: Normocephalic, atraumatic, moist mucous membranes Respiratory/pulmonary: Clear lungs bilaterally, no associated crackles or wheezes. Cardiovascular: Normal heart sounds S1 and S2 with no associated murmurs Abdomen: Abdomen nondistended, there is no pain to palpation in any of the abdominal quadrants, no palpable masses. Extremities: There is no peripheral edema present at the lower extremities. Peripheral Pulses: 3+ Radial (R). 3+ Radial (L). 3+ Dorsalis pedis (R). 3+ Dorsalis pedis(L) Skin: No rashes or pruritus, there is no sacral edema present at this time. Neurological: Intact cranial nerves with no focal neurologic deficits. No signs of meningeal irritation. laboratory and microbiology Laboratory Tests 10/26/24 20:48 Test 10/27/24 13:53 Range/Units Serum Glucose Pending Problem List/Assessment/Plan Problem List/Assessment/Plan #Intractable headache #Stroke, ruled out #Meningitis, ruled out clinically #Cluster headache, possible #Migraine, possible #Cervicogenic headache, possible due to Cervical stenosis -Headache with dizziness, possibly due to above -CT scan reveals no acute abnormality -Managed with acetaminophen, sumatriptan #NICOLASA on CKD, VMN -Labs show creatinine 1.51 #Microcytic, hypochromic anemia, chronic, likely due to iron deficiency -Iron supplementation ordered #Obesity with BMI 32.5 -Counseled on lifestyle modification #Hyperkalemia -Continue managing and monitoring -EKG ordered #History of breast cancer #Hypertension -Hypothyroidism -Continue home medications Goals of care discussed with patient at bedside for more than 35 minutes Code: Unsure, we will discuss with sister, we will follow-up PCP Dr. Micheal Leyva Plan discussed with Dr. Vergara Plan discussed with: Patient My Orders My Orders Orders - THUAN YE RESIDENT Procedure Category Date Status Time Orthostatic Vital ORDERS 10/27/24 Transmitted Signs 08:44 Basic Metabolic Panel LAB 10/28/24 Verified 04:00 Date of Service: Oct 27, 2024 Billing Provider: JEANNETTE VERGARA MD Common Visit Codes: [id number] INP/OBS CARE(HIGH) THUAN YE RESIDENT Oct 27, 2024 14:40 JEANNETTE VERGARA MD Oct 30, 2024 13:36
[2024-10-28] VITALS (10 sets, daily range): BP systolic 116–147; BP diastolic 60–82; PULSE 60–78; RESP 17–20; TEMP 94.8–98.8; O2SAT 95–100
[2024-10-28 06:47] LABS: Anion Gap 9 (5-15); Carbon Dioxide 26 mmol/L (20-31); Chloride 107 mmol/L (98-107); Potassium 4.4 mmol/L (3.5-5.1); Sodium 142 mmol/L (136-145)
[2024-10-28 06:48] LABS: Calcium 9.7 mg/dL (8.7-10.4)
[2024-10-28 06:53] LABS: BUN/Creatinine Ratio 14.3 (10.0-20.0); Blood Urea Nitrogen 19 mg/dL (9-23); Glucose 85 mg/dL (74-106)
--- NOTE | 2024-10-28 10:25 | ECG ---
[facility] Test Date: 2024-10-27 Test Time: 11:19:51 Pat Name: TEJINDER LARIOS Department: Respiratoy Room: 0246 A Gender: F Brass Buffer: ANNMARIE NIELSON : 1945 Requested By: ANTONINO SHOEMAKER Order Number: [id number] Reading MD: Mor Phelps Measurements Intervals [place] Rate: 66 P: 0 CT: 196 QRS: -5 QRSD: 88 T: 43 QT: 377 QTc: 395 Interpretive Statements Atrial-paced rhythm Electronically Signed On 10-29-2024 13:53:36 PDT by Mor Phelps Please click the below link to view image of tracing.
--- NOTE | 2024-10-28 12:34 | DVHPN2 ---
Progress Note - Dictate Date Seen: Oct 28, 2024 Medical Necessity Reason Pt with a Central, PICC or Fol: No Subjective PT WITH MIGRAINE NOW WITH ACUTE EXACERBATION CT OF HEAD NEGATIVE HX OF ACCELERATED HTN CKD STAGE II HYPERKALEMIA SSS S/P PPI HX OF BREAST CA/ CYST vital signs Vital Sign Date Time Temp Pulse Resp B/P (MAP) Pulse Ox O2 Delivery O2 Flow Rate FiO2 10/28/24 09:00 97.6 63 17 125/67 (86) 98 97.6 10/28/24 08:00 Room Air* 0 21 Total Intake and Output 10/27/24 10/27/24 10/28/24 15:00 23:00 07:00 Intake Total 1 ml 1600 ml Balance 1 ml 1600 ml medications Current Medications Medications Dose Ordered Sig/Grace Route Start Time Stop Time Status Last Admin Dose Admin Enalapril Maleate 10 mg DAILY PO 10/27/24 10:00 Hold Levothyroxine Sodium 50 mcg QAM@0600 PO 10/27/24 06:00 10/28/24 05:18 50 MCG Ondansetron HCl 4 mg Q4HP PRN IV 10/26/24 23:45 Acetaminophen 650 mg Q6HP PRN PO 10/26/24 23:45 10/27/24 00:40 650 MG laboratory and microbiology Laboratory Tests 10/28/24 06:06 10/26/24 20:48 Test 10/28/24 06:06 Range/Units Serum Glucose 85 74-106 mg/dL Problem List MIGRAINE NOW WITH ACUTE EXACERBATION CT OF HEAD NEGATIVE HX OF ACCELERATED HTN CKD STAGE II HYPERKALEMIA SSS S/P PPI HX OF BREAST CA/ CYST Assessment/Plan ESR NORMAL CRP ELEVATED LUPUS SCREEN MRI Plan discussed with: Patient THU CHANDLER MD Oct 28, 2024 12:34
--- NOTE | 2024-10-28 18:56 | DVHPNRES ---
Progress Note Date Seen: Oct 28, 2024 Resident Creating Document: THUAN YE RESIDENT Medical Necessity Reason Pt with a Central, PICC or Fol: No Subjective Review of Systems Ari Roger is a 79-year-old female with past medical history of hypertension, HFpEF, hypothyroidism, history of breast cancer. He presented to the ER with chief complaint of left-sided headache, radiating to the neck. She complained of sharp, throbbing pain. She reported history of blood clot in carotid arteries in 2010, endorsed concern for a similar event. Her symptoms were associated with dizziness, blurring vision. She denied any prodromal of symptoms. No aggravating or relieving factors, no history of trauma, fever, chills, nausea, vomiting, neck rigidity. Her initial labs showed hemoglobin 10.7, high potassium and creatinine. On admission, she was treated with sumatriptan. CT head revealed no acute abnormality. Past surgical history: Pacemaker, hysterectomy, back surgery, knee replacement, pacemaker, glaucoma surgery Personal history: Denies smoking, alcohol use, recreational drug use. Lives in home. She was examined at bedside today. She continues to complain of headache. We will continue to monitor and manage. ROS: Constitutional: Denies weight loss, fever and chills. HEENT: Complains of headache. Blurry vision and dizziness on admission, resolved now. Respiratory: Denies shortness of breath and cough Cardiovascular: Denies chest discomfort or palpitations GI: Denies abdominal pain, nausea, vomiting and diarrhea. : Denies dysuria and urinary frequency. Musculoskeletal: Denies myalgias and joint pain Skin: Denies rash and pruritus. Neurological: Headaches, blurry vision, dizziness. Blurry vision and dizziness, resolved now. Objective vital signs Vital Sign Date Time Temp Pulse Resp B/P (MAP) Pulse Ox O2 Delivery O2 Flow Rate FiO2 10/28/24 17:00 97.8 63 17 122/66 (84) 99 97.8 10/28/24 08:00 Room Air* 0 21 Total Intake and Output 10/27/24 10/27/24 10/28/24 15:00 23:00 07:00 Intake Total 1 ml 1600 ml Balance 1 ml 1600 ml medications Current Medications Medications Dose Ordered Sig/Grace Route Start Time Stop Time Status Last Admin Dose Admin Enalapril Maleate 10 mg DAILY PO 10/27/24 10:00 Hold Levothyroxine Sodium 50 mcg QAM@0600 PO 10/27/24 06:00 10/28/24 05:18 50 MCG Ondansetron HCl 4 mg Q4HP PRN IV 10/26/24 23:45 Acetaminophen 650 mg Q6HP PRN PO 10/26/24 23:45 10/27/24 00:40 650 MG Examination General: Patient alert and oriented in person, place and time. Patient following commands. HEENT: Normocephalic, atraumatic, moist mucous membranes Respiratory/pulmonary: Clear lungs bilaterally, no associated crackles or wheezes. Cardiovascular: Normal heart sounds S1 and S2 with no associated murmurs Abdomen: Abdomen nondistended, there is no pain to palpation in any of the abdominal quadrants, no palpable masses. Extremities: There is no peripheral edema present at the lower extremities. Peripheral Pulses: 3+ Radial (R). 3+ Radial (L). 3+ Dorsalis pedis (R). 3+ Dorsalis pedis(L) Skin: No rashes or pruritus, there is no sacral edema present at this time. Neurological: Intact cranial nerves with no focal neurologic deficits. No signs of meningeal irritation. laboratory and microbiology Laboratory Tests 10/28/24 06:06 10/26/24 20:48 Test 10/28/24 06:06 Range/Units Serum Glucose 85 74-106 mg/dL Problem List/Assessment/Plan Problem List/Assessment/Plan #Intractable headache #Stroke, ruled out #Meningitis, ruled out clinically #Cluster headache, possible #Migraine, possible #Cervicogenic headache, possible due to Cervical stenosis -Hypotension on admission -Headache with dizziness, possibly due to above -CT scan reveals no acute abnormality -Managed with acetaminophen, sumatriptan #NICOLASA on CKD, VMN -Labs show creatinine 1.51 #Microcytic, hypochromic anemia, chronic, likely due to iron deficiency -Iron supplementation ordered #Obesity with BMI 32.5 -Counseled on lifestyle modification #Hyperkalemia -Continue managing and monitoring -EKG WNL #History of breast cancer #Hypertension -Hypothyroidism -Continue home medications Goals of care discussed with patient at bedside for more than 25 minutes Code: Unsure, we will discuss with sister, we will follow-up PCP Dr. Micheal Dye discussed with Dr. Jai Dye discussed with: Patient Date of Service: Oct 28, 2024 Billing Provider: JEANNETTE DEL REAL MD Common Visit Codes: [id number] INP/OBS CARE(HIGH) THUAN YE RESIDENT Oct 28, 2024 18:56 JEANNETTE DEL REAL MD Oct 30, 2024 13:46
[2024-10-29 01:00] VITALS: BP 135/77; PULSE 77; RESP 20; TEMP 98.8; O2SAT 98
[2024-10-29 05:00] VITALS: BP 150/80; PULSE 74; RESP 20; TEMP 98; O2SAT 98
[2024-10-29 09:00] VITALS: BP 116/70; PULSE 66; RESP 16; TEMP 97.8; O2SAT 97
--- NOTE | 2024-10-29 12:35 | DVHPN2 ---
Progress Note - Dictate Date Seen: Oct 29, 2024 Medical Necessity Reason Pt with a Central, PICC or Fol: No Subjective PT WITH MIGRAINE NOW WITH ACUTE EXACERBATION CT OF HEAD NEGATIVE HX OF ACCELERATED HTN CKD STAGE II HYPERKALEMIA SSS S/P PPI HX OF BREAST CA/ CYST vital signs Vital Sign Date Time Temp Pulse Resp B/P (MAP) Pulse Ox O2 Delivery O2 Flow Rate FiO2 10/29/24 09:00 97.8 66 16 116/70 (85) 97 97.8 10/29/24 08:00 Room Air* 0 21 Total Intake and Output 10/28/24 10/28/24 10/29/24 15:00 23:00 07:00 Intake Total 1000 ml 450 ml Balance 1000 ml 450 ml medications Current Medications Medications Dose Ordered Sig/Grace Route Start Time Stop Time Status Last Admin Dose Admin Enalapril Maleate 10 mg DAILY PO 10/27/24 10:00 Hold Levothyroxine Sodium 50 mcg QAM@0600 PO 10/27/24 06:00 10/29/24 05:02 50 MCG Ondansetron HCl 4 mg Q4HP PRN IV 10/26/24 23:45 Acetaminophen 650 mg Q6HP PRN PO 10/26/24 23:45 10/27/24 00:40 650 MG laboratory and microbiology Laboratory Tests 10/28/24 06:06 10/26/24 20:48 Test 10/28/24 06:06 Range/Units Serum Glucose 85 74-106 mg/dL Problem List MIGRAINE NOW WITH ACUTE EXACERBATION CT OF HEAD NEGATIVE HX OF ACCELERATED HTN CKD STAGE II HYPERKALEMIA SSS S/P PPI HX OF BREAST CA/ CYST Assessment/Plan ESR NORMAL CRP ELEVATED LUPUS SCREEN MRI HEADACHE RESOLVED MAY DC HOME AFTER MRI Plan discussed with: Patient THU CHANDLER MD Oct 29, 2024 12:35
[2024-10-29 13:00] VITALS: BP 127/67; PULSE 76; RESP 15; TEMP 97.8; O2SAT 99
--- NOTE | 2024-10-29 13:57 | DVHDSRES ---
Discharge Summary Date of Admission Resident Creating Document: THUAN YE RESIDENT Oct 26, 2024 at 23:38 Date of Discharge: Oct 29, 2024 Admitting Diagnosis Intractable headache due to possible Cluster/ Migraine headache, possible Wounds: No large wounds Labs/Diagnostic Data: Laboratory Results Test 10/28/24 06:06 10/27/24 16:57 10/27/24 13:53 10/26/24 22:31 Sodium Level 142 mmol/L (136-145) Potassium Level 4.4 mmol/L (3.5-5.1) Chloride Level 107 mmol/L (98-107) Carbon Dioxide Level 26 mmol/L (20-31) Anion Gap 9 (5-15) Blood Urea Nitrogen 19 mg/dL (9-23) Creatinine 1.33 mg/dL (0.550-1.02) Glomerular Filtration Rate Calc 40 mL/min (>90) BUN/Creatinine Ratio 14.3 (10.0-20.0) Serum Glucose 85 mg/dL (74-106) Calcium Level 9.7 mg/dL (8.7-10.4) Erythrocyte Sedimentation Rate 13 mm/hr (0-20) Magnesium Lvl (Mg Sulfate Therapy) 2.22 mg/dL (4.0-7.1) C-Reactive Protein High Sensitivity 0.39 mg/dL (<1.0) Thyroid Stimulating Hormone (TSH) 0.20 uIU/mL (0.55-4.78) Urine Color Colorless (Yellow) Urine Clarity Clear (Clear) Urine pH 5.0 (5.0-9.0) Urine Specific [place] 1.008 (1.001-1.035) Urine Protein Negative (Negative) Urine Ketones Negative (Negative) Urine Blood Negative /uL (Negative) Urine Nitrite Negative (Negative) Urine Bilirubin Negative (Negative) Urine Urobilinogen Normal mg/dL (Negative) Urine Leukocyte Esterase Negative /uL (Negative) Urine RBC 1 /hpf (0 - 4) Urine Microscopic WBC 1 /HPF (0-5) Urine Squamous Epithelial Cells Few /hpf (<5) Urine Bacteria Few /hpf (None Seen) Urine Hyaline Casts Few /lpf (0 - 2) Urine Glucose Normal mg/dL (Normal) Test 10/26/24 20:48 White Blood Count 5.2 10^3/uL (4.4-10.8) Red Blood Count 4.12 10^6/uL (4.0-5.20) Hemoglobin 10.7 g/dL (12.2-16.2) Hematocrit 32.8 % (36.0-46.0) Mean Corpuscular Volume 79.6 fL (80.0-100.0) Mean Corpuscular Hemoglobin 26.0 pg (28.0-32.0) Mean Corpuscular Hemoglobin Concent 32.7 g/dL (32.0-36.0) Red Cell Distribution Width 17.6 % (11.8-14.3) Platelet Count 221 10^3/uL (140-450) Mean Platelet Volume 7.8 fL (6.9-10.8) Neutrophils (%) (Auto) 60.6 % (37.0-80.0) Lymphocytes (%) (Auto) 27.0 % (10.0-50.0) Monocytes (%) (Auto) 10.0 % (0.0-12.0) Eosinophils (%) (Auto) 1.5 % (0.0-7.0) Basophils (%) (Auto) 0.9 % (0.0-2.0) Neutrophils # (Auto) 3.1 10 ^3/uL (1.6-8.6) Lymphocytes # (Auto) 1.4 10 ^3/uL (0.4-5.4) Monocytes # (Auto) 0.5 10 ^3/uL (0-1.3) Eosinophils # (Auto) 0.1 10 ^3/uL (0-0.8) Basophils # (Auto) 0 10 ^3/uL (0-0.2) Nucleated Red Blood Cells 0.0 % Total Bilirubin 0.2 mg/dL (0.2-1.0) Aspartate Amino Transferase (AST) 18 U/L (13-40) Alanine Aminotransferase (ALT) 13 U/L (7-40) Alkaline Phosphatase 109 U/L (46-116) Total Protein 6.5 g/dL (5.7-8.2) Albumin 4.3 g/dL (3.2-4.8) Other Laboratory Tests 10/28/24 06:06 10/26/24 20:48 Brief Hx & Hospital Course: HISTORY OF PRESENTING ILLNESS: Ari Roger, a 79-year-old female with past medical history of hypertension, HFpEF, hypothyroidism, history of breast cancer. She presented to the ER with chief complaint of left-sided headache, radiating to the neck. She complained of sharp, throbbing pain. She reported history of blood clot in carotid arteries in 2010, endorsed concern for a similar event. Her symptoms were associated with dizziness, blurring vision. She denied any prodromal of symptoms. No aggravating or relieving factors, no history of trauma, fever, chills, nausea, vomiting, neck rigidity. Her initial labs showed hemoglobin 10.7, high potassium and creatinine. HOSPITAL COURSE: She was admitted due to intractable headache. She was started on pain killer acetaminophen and sumatriptan. Head CT scan and brain MRI was performed, which had no significant finding. Cardiology was consulted, recommended medical management. EKG performed, showed sinus rhythm and no significant ST or T-wave changes. During hospital admission, home medication were continued. On 10/29/2024, she was feeling better since admission. She did not have any active complaint including headache. Discharge plan discussed with the patient and the patient discharged home. DISCHARGE PLAN: Follow up with the PCP within 1 week of the discharge. Continue home meds FINAL DIAGNOSIS: #Intractable headache #Stroke, ruled out #Meningitis, ruled out clinically #Cluster headache, possible #Migraine, possible #Cervicogenic headache, possible due to Cervical stenosis #NICOLASA on CKD, VMN #Microcytic, hypochromic anemia, chronic, likely due to iron deficiency #Obesity with BMI 32.5 #Hyperkalemia #History of breast cancer #Hypertension #Hx of Hypothyroidism #Ruled out UTI Operations or Procedures MRI BRAIN HEAD WO CONTRAST INDICATION: Headache rule out structural disease or ischemia EXAM DATE: 10/29/2024 02:22 PM COMPARISON: CT HEAD WITHOUT CONTRAST on DOS: 10/26/24 TECHNIQUE: MRI of the brain without intravenous contrast. FINDINGS: Diffusion weighted images of the brain demonstrate no evidence of acute infarction. There is no evidence of acute intracranial hemorrhage, extra-axial collection, mass effect, midline shift, herniation or hydrocephalus. The ventricles, sulci and cisterns appear age appropriate. Mild changes of chronic microvascular ischemic disease. There are no signal abnormalities on the susceptibility weighted sequences. The major vascular flow voids are present. The visualized paranasal sinuses and mastoid air cells are clear. The surrounding soft tissues and osseous structures are unremarkable. IMPRESSION: 1. No evidence of acute infarction, intracranial hemorrhage, mass effect or hydrocephalus. Mild changes of chronic microvascular ischemic disease. ----- XY CHEST PORTABLE on DOS: 03/02/23 FINDINGS: Left-sided pacemaker with leads in appropriate position. The heart and mediastinal contours are grossly unremarkable. There is no evidence of pleural disease. The lungs are clear. The bony structures of the chest are intact without fracture. IMPRESSION: 1. No evidence of acute disease. --- CT HEAD WITHOUT CONTRAST INDICATION: head pain TECHNIQUE: CT of the head without intravenous contrast. Radiation Dose Information: CT Dose: CTDI volume is 56.74 mGy. Dose-length product is 1002.89 mGy*cm The dose indicators for CT are the volume Computed Tomography (CT) Dose Index (CTDIvol) and the Dose Length Product (DLP), and are measured in units of mGy and mGy-cm, respectively. These indicators are not patient dose, but values generated from the CT scanner acquisition factors. The report includes radiation exposure data for exposures received during this examination. COMPARISON: None FINDINGS: There is no evidence of acute intracranial hemorrhage, extra-axial collection, mass effect, midline shift, herniation or hydrocephalus. The ventricles, sulci and cisterns are age appropriate. The uribe-white differentiation is intact. Patchy periventricular and subcortical white matter hypoattenuation is nonspecific but may be related to small vessel ischemic disease. The visualized paranasal sinuses and mastoid air cells are clear. The surrounding soft tissues and osseous structures are unremarkable. IMPRESSION: 1. No acute intracranial abnormality. Condition at Discharge: Stable Final Diagnosis/Problems List #Intractable headache #Stroke, ruled out #Meningitis, ruled out clinically #Cluster headache, possible #Migraine, possible #Cervicogenic headache, possible due to Cervical stenosis #NICOLASA on CKD, VMN #Microcytic, hypochromic anemia, chronic, likely due to iron deficiency #Obesity with BMI 32.5 #Hyperkalemia #History of breast cancer #Hypertension #Hx of Hypothyroidism #Ruled out UTI Discharge Disposition: Home Discharge Instruct/Medications Diet: Cardiac 2g Na,low cholest, Renal Activity: No Restrictions, As Tolerated Follow Up/Referral: Follow with PCP in 1 week. Medications: Continue home medications. Continued Medications: Acetaminophen (Tylenol Extra Strength) 500 Mg Tab 2 TAB PO Q6HP PRN for MILD PAIN (1-3 PAIN SCALE), TAB Alpha Tocopheryl Acid Succinat (Vitamin E) 400 Unit Tab 400 UNIT PO DAILY, TAB Ascorbic Acid (Vitamin C) 500 Mg Cap 500 MG PO DAILY, CAP Baclofen (Baclofen) 20 Mg Tab 10 MG PO BID, TAB Cholecalciferol (D3 High Potency) 5,000 Unit Cap 2 CAP PO DAILY, CAP Cyanocobalamin (B12) 1,000 Mcg Tab 1000 MCG PO DAILY, TAB Dorzolamide-Timolol (Dorzolamide Hcl/Timolol M) 1 Ml Carmencita 1 DROP EACHEYE BID Enalapril Maleate (Enalapril Maleate) 10 Mg Tab 20 MG PO DAILY Ferrous Sulfate (Ra Iron) 65 Mg Tab 65 MG PO BID, TAB Furosemide (Furosemide) 20 Mg Tab 1 TAB PO DAILY Hydrocodone-Acetaminophen (Hydrocodone Bitartrate/AC 5-325 mg) 1 Tab Tab 1 TAB PO Q6HP PRN, #20 TAB Latanoprost (Latanoprost) 0.005 % Carmencita 1 DROP EACHEYE HS Levothyroxine Sodium (Levothyroxine Sodium) 50 Mcg Tab 50 MCG PO QAM for 30 Days, MCG Loratadine (Claritin) 10 Mg Tab 10 MG PO DAILY, TAB Magnesium Oxide (Magnesium Oxide) 400 Mg Tab 400 MG OR BID, TAB Nifedipine (Nifedipine Er) 60 Mg Tab 60 MG PO, TAB Zinc Gluconate (Zinc) 50 Mg Tab 50 MG PO DAILY, TAB Care Plan: Follow with PCP in 1 week. Continue home medication. Scheduled Alpha Tocopheryl Acid Succinat (Vitamin E), 400 UNIT PO DAILY, (Reported) Ascorbic Acid (Vitamin C), 500 MG PO DAILY, (Reported) Baclofen (Baclofen), 10 MG PO BID, (Reported) Cholecalciferol (D3 High Potency), 2 CAP PO DAILY, (Reported) Cyanocobalamin (B12), 1,000 MCG PO DAILY, (Reported) Dorzolamide-Timolol (Dorzolamide Hcl/Timolol M), 1 DROP EACHEYE BID, (Reported) Enalapril Maleate (Enalapril Maleate), 20 MG PO DAILY, (Reported) Ferrous Sulfate (Ra Iron), 65 MG PO BID, (Reported) Furosemide (Furosemide), 1 TAB PO DAILY, (Reported) Latanoprost (Latanoprost), 1 DROP EACHEYE HS, (Reported) Levothyroxine Sodium (Levothyroxine Sodium), 50 MCG PO QAM, (Reported) Loratadine (Claritin), 10 MG PO DAILY, (Reported) Magnesium Oxide (Magnesium Oxide), 400 MG OR BID, (Reported) Zinc Gluconate (Zinc), 50 MG PO DAILY, (Reported) Scheduled PRN Acetaminophen (Tylenol Extra Strength), 2 TAB PO Q6HP PRN for MILD PAIN (1-3 PAIN SCALE), (Reported) Hydrocodone-Acetaminophen (Hydrocodone Bitartrate/AC 5-325 mg), 1 TAB PO Q6HP PRN Miscellaneous Medications Nifedipine (Nifedipine Er), 60 MG PO, (Reported) Discharge Statement: "Patient was advised to return to the ER or call 911 if any headaches, dizziness, shortness of breath, chest pain, abdominal pain, bleeding, fevers, or worsening of medical condition. Patient was counseled about treatment plan, medications, possible side effects, patientverbalized understanding. All questions were answered to the best of my ability. This discharge took greater then 30 minutes in planning, reviewing documentation, counseling the patient, and discussing with other team members." ASSESSMENT ASSESSMENT Assessment Date of Service: Oct 29, 2024 Billing Provider: JEANNETTE DEL REAL MD Common Visit Codes: 01757-CJV/OBS DISCH DAY >30min THUAN YE RESIDENT Oct 29, 2024 13:57 TAM GIBBS RESIDENT Oct 29, 2024 15:54 JEANNETTE DEL REAL MD Oct 30, 2024 14:07
--- NOTE | 2024-10-29 15:00 | DVH ---
PROCEDURE: MRI BRAIN HEAD WO CONTRAST INDICATION: Headache rule out structural disease or ischemia EXAM DATE: 10/29/2024 02:22 PM COMPARISON: CT HEAD WITHOUT CONTRAST on DOS: 10/26/24 TECHNIQUE: MRI of the brain without intravenous contrast. FINDINGS: Diffusion weighted images of the brain demonstrate no evidence of acute infarction. There is no evidence of acute intracranial hemorrhage, extra-axial collection, mass effect, midline s hift, herniation or hydrocephalus. The ventricles, sulci and cisterns appear age appropriate. Mild changes of chronic microvascular ischemic disease. There are no signal abnormalities on the susceptibility weighted sequences. The major vascular flow voids are present. The visualized paranasal sinuses and mastoid air cells are clear. The surrounding soft tissues and o sseous structures are unremarkable. IMPRESSION: 1. No evidence of acute infarction, intracranial hemorrhage, mass effect or hydrocephalus. Mild palacios es of chronic microvascular ischemic disease. HS:Y
[2024-10-29 16:58] VITALS: BP 133/76; PULSE 63; RESP 16; TEMP 97.7; O2SAT 95
[2024-10-30 21:07] LABS: PTT-LA 30.5 sec (0.0-43.5)
== END 2024-10-29 19:15 | disposition home or self-care (01) | DRG 551 ==
LOC: ER 19:10 → OVERFLOW 23:38 → EAST 10-27 02:05
PROVIDERS: ADMIT Student in an Organized Health Care Education/Training Program; ATTEND Student in an Organized Health Care Education/Training Program
DX: M48.02 Spinal stenosis, cervical region (principal); N17.0 Acute kidney failure with tubular necrosis; I13.0 Hypertensive heart and chronic kidney disease with heart failure and stage 1 through stage 4 chronic kidney disease, or unspecified chronic kidney disease; I50.32 Chronic diastolic (congestive) heart failure; G43.909 Migraine, unspecified, not intractable, without status migrainosus; E87.5 Hyperkalemia; I49.5 Sick sinus syndrome; N18.2 Chronic kidney disease, stage 2 (mild); D50.9 Iron deficiency anemia, unspecified; E03.9 Hypothyroidism, unspecified; E66.9 Obesity, unspecified; Z68.32 Body mass index [BMI] 32.0-32.9, adult; Z88.5 Allergy status to narcotic agent; Z90.710 Acquired absence of both cervix and uterus; Z85.3 Personal history of malignant neoplasm of breast; Z79.899 Other long term (current) drug therapy
CPT/HCPCS: 36415; 70450; 70551; 71045; 80048; 80053; 81001; 83735; 84443; 85025; 85613; 85652; 85670; 85705; 85732; 86141; 93005; 96374; 96375; G0378; J1100

== ENCOUNTER 2025-01-01 08:03 | Outpatient (CLI) | payer MEDICARE, MEDICAID ==
[2025-01-01 08:24] LABS: Hematocrit 35.0 % (36.0-46.0); Hemoglobin 11.4 g/dL (12.2-16.2); Mean Corpuscular Hemoglobin 25.6 pg (28.0-32.0); Mean Corpuscular Volume 78.8 fL (80.0-100.0); Nucleated Red Blood Cells % 0.2 %
[2025-01-01 08:29] LABS: Urine Protein, UAD Negative (Negative)
[2025-01-01 08:44] LABS: Alanine Aminotransferase 12 U/L (7-40); Albumin 4.0 g/dL (3.2-4.8); Alkaline Phosphatase 110 U/L (46-116); Anion Gap 8 (5-15); BUN/Creatinine Ratio 13.4 (10.0-20.0); Bilirubin, Direct 0.1 mg/dL (<0.3); Bilirubin, Total 0.4 mg/dL (0.2-1.0); Blood Urea Nitrogen 16 mg/dL (9-23); Calcium 9.1 mg/dL (8.7-10.4); Carbon Dioxide 30 mmol/L (20-31); Chloride 106 mmol/L (98-107); Cholesterol 184 mg/dL (< 200); Glucose 98 mg/dL (74-106); Potassium 4.0 mmol/L (3.5-5.1); Sodium 144 mmol/L (136-145); Total Protein 6.5 g/dL (5.7-8.2); Triglycerides 63 mg/dL (< 150)
[2025-01-01 08:49] LABS: HDL Cholesterol 100 mg/dL (40-59)
== END 2025-01-01 17:00 | disposition home or self-care (01) ==
LOC: LAB 08:03
PROVIDERS: ATTEND Internal Medicine Cardiovascular Disease
DX: I10 Essential (primary) hypertension (principal); E11.9 Type 2 diabetes mellitus without complications; E55.9 Vitamin D deficiency, unspecified; D64.9 Anemia, unspecified; R00.2 Palpitations
CPT/HCPCS: 36415; 80048; 80061; 80076; 81003; 83036; 84443; 85025